=== PATIENT | female | born 1990 | race Caucasian/White ===

== ENCOUNTER 2017-05-04 11:21 | Emergency (ER) | payer MEDICAID, OTHER ==
[2017-05-04] MEDS ORDERED: Ibuprofen TAB* 200 MG PO ONE (12:04)
--- NOTE | 2017-05-04 12:43 | UC ---
lo Moore Timothy, scribed for Starla Lieberman MD on 05/04/17 at 1200 . Lower Extremity/Ankle HPI - HPI Summary HPI Summary: Dangelo Figueredo is a 26 yo female presenting to [facility] with 8/10 right knee pain since yesterday, and right-sided back pain for the past hour. She states she noticed her pain when she was carrying one of her children. Her pain increases with weight-bearing, but it is able to bear weight. She denies any trauma to her back or right knee. No fall. No paresthesia. No weakness. Pt applied ice - helped for awhile, but then pain returned. Pt denies paresthesia, weakness. No analgesi taken. No h/o knee problems. pt also reports right lower back pain today. Pt has been walking with a limp second to knee pain. No sob, no cp. Her MHx includes shanae's disease, asthma. Her LNMP started 04/29/17. Pt medication list was reviewed this visit. - History of Current Complaint Chief Complaint: UCBackPain Stated Complaint: PAIN ON SIDE KNEE PAIN Time Seen by Provider: 05/04/17 11:52 Hx Obtained From: Patient Hx Last Menstrual Period: 05/04/17 Onset/Duration: Sudden Onset, Lasting Hours, Still Present Severity Initially: Moderate Severity Currently: Moderate Pain Intensity: 8 Pain Scale Used: 0-10 Numeric Aggravating Factor(s): Standing, Ambulation Alleviating Factor(s): Rest Able to Bear Weight: Yes - Allergies/Home Medications Allergies/Adverse Reactions: Allergies Allergy/AdvReac Type Severity Reaction Status Date / Time Sulfa Drugs Allergy Intermediate Hives Verified 05/04/17 11:32 PMH/Surg Hx/FS Hx/Imm Hx Previously Healthy: Yes Endocrine History: Thyroid Disease - shanae's - not treated Respiratory History: Asthma - Surgical History Surgical History: Yes Surgery Procedure, Year, and Place: C section - Family History Known Family History: Positive: Hypertension, Diabetes, Other - CA, thyroid issues - Social History Occupation: Employed Full-time - [employer] station Lives: With Family Alcohol Use: None Substance Use Type: None Smoking Status (MU): Current Every Day Smoker Have You Smoked in the Last Year: No Household Exposure Type: Cigarettes - Immunization History Most Recent Influenza Vaccination: 10/12/13 Most Recent Tetanus Shot: unsure Most Recent Pneumonia Vaccination: never Review of Systems Constitutional: Negative Skin: Negative Eyes: Negative ENT: Negative Respiratory: Negative Cardiovascular: Negative Gastrointestinal: Negative Genitourinary: Negative Motor: Negative Neurovascular: Negative Musculoskeletal: Other: - right knee pain, back pain - right lower Neurological: Negative Psychological: Negative All Other Systems Reviewed And Are Negative: Yes Physical Exam Triage Information Reviewed: Yes Appearance: Well-Appearing, No Pain Distress, Well-Nourished Vital Signs: Initial Vital Signs Temp 98.2 F 05/04/17 11:28 Pulse 74 05/04/17 11:28 Resp 16 05/04/17 11:28 BP 108/65 05/04/17 11:28 Pulse Ox 100 05/04/17 11:28 Eye Exam: Normal ENT: Positive: Hearing grossly normal Neck exam: Normal Neck: Positive: Supple, Nontender, No Lymphadenopathy Respiratory Exam: Normal Respiratory: Positive: Chest non-tender, Lungs clear, Normal breath sounds, No respiratory distress Cardiovascular Exam: Normal Cardiovascular: Positive: RRR, No Murmur, Pulses Normal, Other: - 2+ PD, PT CBT < 2 sec Abdominal Exam: Normal Abdomen Description: Positive: Nontender, No Organomegaly, Soft Bowel Sounds: Positive: Present Musculoskeletal: Positive: Other: - No spinous process pain c/t/l/s mild right paraspinal pain lower thoracic, upper lumbar + SLE + flex/ext knee with pain with full extension, full flexion + TTP lateral aspect of right patella Neg anter/post drawer Little pain with lateral joint strain Neurological: Positive: Other: - 2+ patella, 2+ achilles + gross sensation throughout Psychological Exam: Normal Psychological: Positive: Normal Response To Family Skin Exam: Normal Diagnostics - Radiology R Knee XR Xray Interpretation: No Acute Changes - IMPRESSION: Negative radiographic exam of the RIGHT knee. Radiology Interpretation Completed By: Radiologist Re-Evaluation - Re-Evaluation First Eval Re-Evaluation Time: 13:07 Change: Unchanged Comment: Reviewed imaging studies with Pt. Pt was sitting in a chair with her knees flexed in no pain distress. She is agreeable to current course of Tx. Lower Extremity Course/Dx - Course Course Of Treatment: Dangelo Figueredo is a 26 yo female presenting to [facility] with 8/ 10 right knee pain since yesterday, and right-sided back pain for the past hour. She denies any known trauma. Pt without significant edema - pain lateral aspect right knee. Will give analgesia, ice, imaging. Course of Tx was explained to Pt, and her questions were answered to her satisfaction. In the ED course she received ibuprofen for pain management. Her R knee XR suggests a negative exam. After clinical examination and review of her imaging study, she will be discharged home with appropriate instructions. - Differential Dx/Diagnosis Provider Diagnoses: right knee strain. back pain Discharge - Discharge Plan Condition: Stable Disposition: HOME Patient Education Materials: Knee Sprain (ED) Forms: *Work Release Referrals: Jose Manuel Lynn MD [Primary Care Provider] - 2 Days Additional Instructions: - - Alternate ibuprofen (Advil, Motrin) 600mg and Tylenol every 3 hours for pain or fever. Take with food. Do NOT take for more than 4-5 days. - wear tiffanie wrap for support - apply ice (wrapped in a towel) 20 minutes at a time, 2- 3 times a day for pain and swelling - wear crutches until you can walk normally without a limp - contact your doctor to schedule a follow-up appointment. Contact your doctor or return with questions or concerns Please follow up with your primary care physician regarding your visit to urgent care today. Return to urgent care or the emergency department with any new or recurring symptoms. The documentation as recorded by the lo barrera Timothy accurately reflects the service I personally performed and the decisions made by , Starla Lieberman MD.
--- NOTE | 2017-05-04 13:03 | RAD ---
Indication: Lateral RIGHT knee pain and stiffness following ambulation. Limitation in flexion. Comparison: None. Technique: RIGHT knee: AP, tunnel, lateral, sunrise views. Report: Normal alignment. Negative for effusion or fracture. No arthropathic change evident. Unremarkable soft tissue contours. IMPRESSION: Negative radiographic exam of the RIGHT knee.
[2017-05-04 13:27] VITALS: BP 102/65
== END 2017-05-04 13:35 | disposition home or self-care (01) ==
LOC: UCEAST 11:21
DX: S83.91XA Sprain of unspecified site of right knee, initial encounter (principal); X58.XXXA Exposure to other specified factors, initial encounter
CPT/HCPCS: 99203; A9270-GY; G0463

== ENCOUNTER 2017-06-29 10:52 | Emergency (ER) | payer OTHER ==
[2017-06-29] MEDS ORDERED: Ketorolac INJ* 60 MG/2 ML VIAL IM ONE (11:54)
--- NOTE | 2017-06-29 12:29 | UC ---
Throat Pain/Nasal [place] HPI - HPI Summary HPI Summary: ONSET LAST NIGHT OF ST AND PAIN WITH SWALLOWING. NO FEVER, COUGH OR CONGESTION. ALSO HAS HAD 1 MONTH OF RIGHT SHOULDER PAIN AND DECREASED ROM. IS SCHEDULED FOR A STEROID INJECTION WITH HER PCP DR. PANDEY TOMORROW. THINKS SHE PULLED A MUSCLE PICKING UP HER TODDLER. IS CONCERNED DUE TO SEVERITY OF PAIN. STATES IT SHOOTS DOWN HER BACK AND MAKES HER ARM GO NUMB AT TIMES. - History of Current Complaint Chief Complaint: UCUpperExtremity Stated Complaint: SHOULDER PAIN SORE THROAT Time Seen by Provider: 06/29/17 11:38 Hx Obtained From: Patient, Family/Brineyard Supervisor - MOM Hx Last Menstrual Period: 06/20/17 Onset/Duration: Sudden Onset, Lasting Hours, Still Present Severity: Moderate Pain Intensity: 7 Pain Scale Used: 0-10 Numeric Cough: None Associated Signs & Symptoms: Positive: Negative - Allergies/Home Medications Allergies/Adverse Reactions: Allergies Allergy/AdvReac Type Severity Reaction Status Date / Time Sulfa Drugs Allergy Intermediate Hives Verified 06/29/17 11:00 Home Medications: Home Medications Tramadol HCl [Ultram] 2 tab PO Q6HR PRN 06/29/17 [History Confirmed 06/29/17] PMH/Surg Hx/FS Hx/Imm Hx Endocrine History: Thyroid Disease - Surgical History Surgical History: Yes Surgery Procedure, Year, and Place: C section - Family History Known Family History: Positive: Hypertension, Diabetes, Other - CA, thyroid issues - Social History Alcohol Use: None Substance Use Type: None Smoking Status (MU): Current Every Day Smoker Amount Used/How Often: 1pack q 3 days. Have You Smoked in the Last Year: No Household Exposure Type: Cigarettes - Immunization History Most Recent Influenza Vaccination: 10/12/13 Most Recent Tetanus Shot: unsure Most Recent Pneumonia Vaccination: never Review of Systems Constitutional: Negative ENT: Sore Throat Respiratory: Negative Cardiovascular: Negative Gastrointestinal: Negative Musculoskeletal: Arthralgia, Decreased ROM, Myalgia All Other Systems Reviewed And Are Negative: Yes Physical Exam Triage Information Reviewed: Yes Appearance: Well-Appearing, Well-Nourished, Pain Distress - MILD Vital Signs: Initial Vital Signs Temp 98.2 F 06/29/17 10:54 Pulse 105 06/29/17 10:54 Resp 16 06/29/17 10:54 BP 120/76 06/29/17 10:54 Pulse Ox 100 06/29/17 10:54 Vital Signs Reviewed: Yes Eyes: Positive: Conjunctiva Clear ENT: Positive: Hearing grossly normal, Pharynx normal, TMs normal. Negative: Tonsillar swelling, Tonsillar exudate Neck: Positive: Supple, Tenderness @ - SPFL CERVICAL LAD, Enlarged Nodes @ - SPFL CERVICAL LAD Respiratory Exam: Normal Cardiovascular: Positive: Tachycardia Abdomen Description: Positive: Soft Musculoskeletal: Positive: No Edema, ROM Limited @ - RIGHT SHOULDER, Other: - TTP DIFFUSELY OVER RIGHT SHOULDER Neurological: Positive: Alert Psychological: Positive: Age Appropriate Behavior Skin: Negative: rashes Diagnostics - Laboratory Diagnostic Studies Completed/Ordered: RAPID STREP NEGATIVE - Radiology right shoulder xrays Xray Interpretation: No Acute Changes Radiology Interpretation Completed By: Radiologist Re-Evaluation - Re-Evaluation First Eval Re-Evaluation Time: 13:00 Change: Improved Throat Pain/Nasal Course/Dx - Differential Dx/Diagnosis Provider Diagnoses: 1. ACUTE PHARYNGITIS. 2. RIGHT SHOULDER PAIN Discharge - Discharge Plan Condition: Stable Disposition: HOME Patient Education Materials: Pharyngitis (ED), Shoulder Pain (ED) Referrals: Jose Manuel Pandey MD [Primary Care Provider] - (KEEP YOUR FOLLOW-UP WITH DR. PANDEY TOMORROW) Jose Manuel Cedeno MD [Medical Doctor] - 1 Week Additional Instructions: SHOULDER XRAY UNREMARKABLE TODAY. RAPID STREP NEGATIVE. KEEP YOUR PCP APPT TOMORROW. CONSIDER FOLLOW-UP WITH [facility] IF YOUR SHOULDER PAIN IS PERSISTENT.
--- NOTE | 2017-06-29 12:44 | RAD ---
Indication: Right shoulder pain. 3 views of the right shoulder demonstrates no fracture. No other bone or joint abnormality is identified. IMPRESSION: Unremarkable right shoulder.
[2017-06-29 13:25] VITALS: BP 102/72
== END 2017-06-29 13:21 | disposition home or self-care (01) ==
LOC: UCEAST 10:52
DX: J02.9 Acute pharyngitis, unspecified (principal); M25.511 Pain in right shoulder; E07.9 Disorder of thyroid, unspecified; Z88.2 Allergy status to sulfonamides; F17.210 Nicotine dependence, cigarettes, uncomplicated
CPT/HCPCS: 87651; 96372; 99212; G0463; J1885

== ENCOUNTER 2017-07-31 11:14 | Emergency (ER) | payer OTHER ==
[2017-07-31 11:23] VITALS: BP 86/54
--- NOTE | 2017-07-31 11:49 | UC ---
Abdominal Pain Female HPI - HPI Summary HPI Summary: TWO DAYS OF RLQ AND LLQ ABDOMINAL PAIN. HISTORY OF OVARIAN CYSTS. NO FEVER. NO PAIN WITH URINATION. NAUSEA AND LOOSE STOOLS. PAIN WITH POSITION AND TOUCH. - History of Current Complaint Chief Complaint: UCGI Stated Complaint: ABDOMINAL PAIN Time Seen by Provider: 07/31/17 11:21 Hx Obtained From: Patient Hx Last Menstrual Period: 07/14/17 Onset/Duration: Gradual Onset, Lasting Days, Still Present Timing: Intermittent Episodes Lasting: Severity Initially: Moderate Severity Currently: Moderate Location: Discrete At: RLQ, Discrete At: LLQ, Suprapubic Radiates: No Radiates to: LLQ, RLQ Character: Colicy, Cramping, Sharp Aggravating Factor(s): Movement Alleviating Factor(s): Position, Spontaneous Resolution Associated Signs and Symptoms: Positive: Nausea, Diarrhea. Negative: Fever, Cough, Chest Pain, Dizzy, Constipation, Blood in Stool, Urinary Symptoms, Decreased Appetite, Vaginal Bleeding - Risk Factors Ectopic Risk Factor: Negative Ovarian Torsion Risk Factor: Negative Allergies/Adverse Reactions: Allergies Allergy/AdvReac Type Severity Reaction Status Date / Time Sulfa Drugs Allergy Intermediate Hives Verified 07/31/17 11:23 Home Medications: Home Medications NK [No Home Medications Reported] 07/31/17 [History Confirmed 07/31/17] PMH/Surg Hx/FS Hx/Imm Hx Previously Healthy: Yes - Surgical History Surgical History: Yes Surgery Procedure, Year, and Place: C section - Family History Known Family History: Positive: Hypertension, Diabetes, Other - CA, thyroid issues - Social History Occupation: Employed Full-time Lives: With Family Alcohol Use: Rare Substance Use Type: None Smoking Status (MU): Current Every Day Smoker Amount Used/How Often: 1pack q 3 days. Have You Smoked in the Last Year: No Household Exposure Type: Cigarettes - Immunization History Most Recent Influenza Vaccination: 10/12/13 Most Recent Tetanus Shot: unsure Most Recent Pneumonia Vaccination: never Review of Systems Constitutional: Negative Skin: Negative Eyes: Negative ENT: Negative Respiratory: Negative Cardiovascular: Negative Gastrointestinal: Abdominal Pain, Diarrhea, Nausea Genitourinary: Negative Motor: Negative Neurovascular: Negative Musculoskeletal: Negative Neurological: Negative Psychological: Negative All Other Systems Reviewed And Are Negative: Yes Physical Exam Triage Information Reviewed: Yes Appearance: Well-Appearing, Well-Nourished, Pain Distress, Thin Vital Signs: Initial Vital Signs Temp 97.9 F 07/31/17 11:17 Pulse 90 07/31/17 11:17 Resp 18 07/31/17 11:17 BP 86/54 07/31/17 11:17 Pulse Ox 100 07/31/17 11:17 Vital Signs Reviewed: Yes Eye Exam: Normal ENT Exam: Normal ENT: Positive: Normal ENT inspection, Hearing grossly normal, TMs normal Dental Exam: Normal Neck exam: Normal Neck: Positive: Supple, Nontender, No Lymphadenopathy Respiratory Exam: Normal Respiratory: Positive: Chest non-tender, Lungs clear, Normal breath sounds, No respiratory distress, No accessory muscle use Cardiovascular Exam: Normal Cardiovascular: Positive: RRR, No Murmur, Pulses Normal, Brisk Capillary Refill Abdomen Description: Positive: No Organomegaly, Soft. Negative: Nontender - TENDER RLQ, LLQ, SUPRAPUBIC Musculoskeletal Exam: Normal Musculoskeletal: Positive: Strength Intact, ROM Intact, No Edema Abd Pain Female Course/Dx - Course Course Of Treatment: WITH HISTORY OF OVARIAN CYST AND PAIN OUT OF PROPORTION TO UTI, WITH NO URINARY SYMPTOMS, PATIENT WAS ADVISED TO SEEK EVALUATION AT ED. [facility] REFUSED AMBULANCE BUT AGREED TO SEEK CARE AT ED, WILL GO BY PRIVATE CARE , FRIEND DRIVING. 2+ LEUKOCYTES, NO HEMATURIA, NEGATIVE URINE - Differential Dx/Diagnosis Differential Diagnosis: Appendicitis, Bowel Obstruction, Diverticulitis, Hepatitis, Ovarian Cyst, Pelvic Inflammatory Disease, , Urinary Tract Infection, Other - PID, STD Provider Diagnoses: URINARY TRACT INFECTION; ABDOMINAL PAIN - Physician Notification/Consults Discussed Care of Patient With: Poncho Denise Time Discussed With Above Provider: 11:50 Instructed by Provider To: MD Will See In ED Discharge - Discharge Plan Condition: Stable Disposition: HOME Patient Education Materials: Ovarian Cyst (ED), Urinary Tract Infection in Women (ED), Abdominal Pain (ED) Referrals: Jose Manuel Lynn MD [Primary Care Provider] - Additional Instructions: ALTHOUGH YOU HAVE REFUSED AMBULANCE, YOU HAVE AGREED TO SEEK IMMEDIATE EVALUATION AT THE EMERGENCY DEPARTMENT, ESPECIALLY REGARDING YOUR ABDOMINAL PAIN, WITH YOUR HISTORY OF OVARIAN CYSTS. DRIVE CAUTIOUSLY AND SAFELY TO THE EMERGENCY DEPARTMENT.
== END 2017-07-31 11:46 | disposition home or self-care (01) ==
LOC: UCEAST 11:14
DX: N39.0 Urinary tract infection, site not specified (principal); R10.30 Lower abdominal pain, unspecified; Z32.02 Encounter for pregnancy test, result negative
CPT/HCPCS: 81003; 84702; 87086; 99211; G0463

== ENCOUNTER 2017-07-31 12:20 | Emergency (ER) | payer OTHER ==
[2017-07-31] MEDS ORDERED: NS 0.9% 1000 ML* 1,000 ML IV ONE (12:39)
[2017-07-31] MEDS ORDERED: Morphine INJ* 4 MG/ML 1 ML SYRINGE IV ONE (12:41)
[2017-07-31] MEDS ORDERED: Ondansetron INJ* 2 MG/ML VIAL IV ONE (12:41)
[2017-07-31 13:00] LABS: Hematocrit 36 % (35-47); Hemoglobin 12.2 g/dl (12.0-16.0); Mean Corpuscular HGB Conc 34 g/dl (31-36); Mean Corpuscular Hemoglobin 32 pg (27-31); Mean Corpuscular Volume 96 fL (80-97); Mean Platelet Volume 9 um3 (7.4-10.4); Red Blood Count 3.78 10^6/ul (4.0-5.4); Red Cell Distribution Width 16 % (10.5-15); White Blood Count 5.7 10^3/ul (3.5-10.8)
[2017-07-31 13:23] LABS: ALT 12 U/L (7-52); AST 17 U/L (13-39); Alkaline Phosphatase 48 U/L (34-104); Anion Gap 1 mmol/L (2-11); BUN/Creatinine Ratio 11.1 (8-20); Blood Urea Nitrogen 7 mg/dL (6-24); CO2 Carbon Dioxide 29 mmol/L (22-32); Calcium 9.1 mg/dL (8.6-10.3); Chloride 105 mmol/L (101-111); EGFR African American 149.3 (>60); EGFR Non-African American 116.1 (>60); Globulin 2.5 g/dL (2-4); Glucose 79 mg/dL (70-100); Lipase 35 U/L (11.0-82.0); Potassium 3.6 mmol/L (3.5-5.0); Sodium 135 mmol/L (133-145); Total Protein 6.5 g/dL (6.4-8.9)
[2017-07-31] MEDS ORDERED: Iohexol 300* (CONTRAST) 10 ML SDV IV ONE (14:36)
--- NOTE | 2017-07-31 15:16 | RAD ---
INDICATION: Lower abdominal pain evaluate for appendicitis. COMPARISON: There are no prior studies available for comparison. TECHNIQUE: A CT scan of the abdomen and pelvis was performed with intravenous and oral contrast following intravenous injection of 59 ml of Omnipaque 300 nonionic contrast. Contiguous axial sections were obtained from the lung bases through the symphysis pubis. Images were reconstructed in the coronal and sagittal planes. FINDINGS: The lung bases are clear. No pleural effusion is present. The liver and spleen are within normal limits in size without significant focal abnormality. No calcified gallstones are seen. The pancreas appears to be within normal limits in size. The kidneys and adrenal glands are normal in size. No hydronephrosis is seen. No significant focal renal abnormality is seen. The aorta is normal in caliber and demonstrates homogeneous contrast opacification. No significant enlarged retroperitoneal lymph nodes are seen. The stomach, small and large bowel appear nondistended. The appendix is within normal limits. There is no evidence for diverticulitis or colitis. The uterus is anteverted and upper limits of normal in size. There is a small amount of free intraperitoneal fluid in the cul-de-sac. No free intraperitoneal air is present. There is a yoen-yd-ggftinre dorsal lumbar scoliosis. No significant focal osseous abnormality is seen. IMPRESSION: SMALL AMOUNT OF FREE INTRAPERITONEAL FLUID IN THE PELVIS IN THE CUL-DE-SAC, OTHERWISE UNREMARKABLE STUDY.
[2017-07-31 16:14] LABS: Urine Bacteria Absent (Absent); Urine Bilirubin Negative (Negative); Urine Glucose Negative (Negative); Urine Nitrite Negative (Negative)
--- NOTE | 2017-07-31 16:27 | RAD ---
INDICATION: Right lower quadrant pain, ovarian cyst. COMPARISON: Comparison is made with a prior pelvic ultrasound from September 07, [address] of the abdomen and pelvis from July 31, 2017. TECHNIQUE: Multiple real-time transvaginal images of the pelvis were obtained. FINDINGS: The uterus is normal in size, shape and echogenicity. The uterus measured 9.8 x 5.0 x 6.4 cm. The endometrial echo measured 1.0 cm in thickness. The right ovary measured 3.6 x 2.1 x 4.1 cm. The left ovary measured 3.1 x 2.6 x 1.8 cm. There is vascular flow within both ovaries. There is a small amount of free intraperitoneal fluid in the cul-de-sac. IMPRESSION: SMALL AMOUNT OF FREE INTRAPERITONEAL FLUID IN THE CUL-DE-SAC OTHERWISE UNREMARKABLE STUDY.
[2017-07-31 17:13] VITALS: BP 109/63
--- NOTE | 2017-07-31 17:17 | ED ---
Alannah Moore SooYoung, scribed for Dheeraj Vasquez on 07/31/17 at 1238 . Abdominal Pain/Female - HPI Summary HPI Summary: A 26 y/o F referred from [facility] presents to ED with c/o RLQ abd pain onset this AM. Pain rated as 8 out of 10. Associated sx: nausea. Denies v/d, fever, hematuria, vaginal bleeding. Prev PMHx: ovarian cysts. Only abd surgery was a C- section three years ago. Smoker. - History of Current Complaint Chief Complaint: EDAbdPain Stated Complaint: ABD PAIN-SENT FROM [facility] Time Seen by Provider: 07/31/17 12:33 Hx Obtained From: Patient Hx Last Menstrual Period: 07/14/17 Onset/Duration: Gradual Onset, Lasting Hours, Still Present Timing: Constant Severity Initially: Moderate Severity Currently: Severe Pain Intensity: 8 Pain Scale Used: 0-10 Numeric Location: Discrete At: RLQ Associated Signs and Symptoms: Positive: Nausea. Negative: Fever, Urinary Symptoms, Vaginal Bleeding, Vomiting, Diarrhea Allergies/Adverse Reactions: Allergies Allergy/AdvReac Type Severity Reaction Status Date / Time Sulfa Drugs Allergy Intermediate Hives Verified 07/31/17 11:23 PMH/Surg Hx/FS Hx/Imm Hx Previously Healthy: No Endocrine/Hematology History: Reports: Hx Thyroid Disease - Pt unsure if hypo- or hyper Denies: Hx Diabetes Cardiovascular History: Denies: Hx Hypertension Respiratory History: Reports: Hx Asthma Denies: Hx Chronic Obstructive Pulmonary Disease (COPD) GI History: Denies: Hx Ulcer - Surgical History Surgery Procedure, Year, and Place: C section Infectious Disease History: Denies: Hx Clostridium Difficile, Hx Hepatitis, Hx Human Immunodeficiency Virus (HIV), Hx of Known/Suspected MRSA, Hx Shingles, Hx Tuberculosis, Hx Known/ Suspected VRE, Hx Known/Suspected VRSA, History Other Infectious Disease, Traveled Outside the [place] in Last 30 Days - Family History Known Family History: Positive: Hypertension, Diabetes, Other - CA, thyroid issues - Social History Occupation: Employed Full-time Lives: Alone Alcohol Use: Rare Hx Substance Use: No Substance Use Type: Reports: None Hx Tobacco Use: Yes Smoking Status (MU): Current Every Day Smoker Amount Used/How Often: 1pack q 3 days. Have You Smoked in the Last Year: No Review of Systems Negative: Fever Positive: Abdominal Pain - RLQ, Nausea. Negative: Vomiting, Diarrhea Negative: discharge - neg: vaginal bleeding, hematuria All Other Systems Reviewed And Are Negative: Yes Physical Exam Triage Information Reviewed: Yes Vital Signs On Initial Exam: Initial Vitals Temp Pulse Resp BP Pulse Ox 97.7 F 81 20 107/58 99 07/31/17 12:24 07/31/17 12:24 07/31/17 12:24 07/31/17 12:24 07/31/17 12:24 Vital Signs Reviewed: Yes Appearance: Positive: Well-Appearing, No Pain Distress Skin: Positive: Warm, Skin Color Reflects Adequate Perfusion, Dry Head/Face: Positive: Normal Head/Face Inspection Eyes: Positive: EOMI, RADHA ENT: Positive: Normal ENT inspection Neck: Positive: Supple, Nontender Respiratory/Lung Sounds: Positive: Clear to Auscultation, Breath Sounds Present Cardiovascular: Positive: RRR, Pulses are Symmetrical in both Upper and Lower Extremities Abdomen Description: Positive: Soft, Other: - RLQ tenderness Bowel Sounds: Positive: Present Musculoskeletal: Positive: Normal, Strength/ROM Intact Neurological: Positive: Normal, Sensory/Motor Intact, Alert, Oriented to Person Place, Time Diagnostics - Vital Signs Vital Signs Temp Pulse Resp BP Pulse Ox 07/31/17 12:24 97.7 F 81 20 107/58 99 - Laboratory Result Diagrams: 07/31/17 12:45 07/31/17 12:45 Lab Statement: Any lab studies that have been ordered have been reviewed, and results considered in the medical decision making process. - CT ABD/PEL CT CT Interpretation: No Acute Changes - IMPRESSION: SMALL AMOUNT OF FREE INTRAPERITONEAL FLUID IN THE PELVIS IN THE CUL-DE-SAC, OTHERWISE UNREMARKABLE STUDY. ED physician has reviewed this radiology report and agrees. CT Interpretation Completed By: Radiologist Re-Evaluation - Re-Evaluation 1 Re-Evaluation Time: 16:55 Change: Improved Comment: Discussing results with pt. Pt feeling better. Abdominal Pain Fem Course/Dx - Course Course Of Treatment: A 26 y/o F referred from [facility] presents to ED with c/o RLQ abd pain onset this AM. Associated sx: nausea. Denies v/d, fever, hematuria, vaginal bleeding. Prev PMHx: ovarian cysts. PSHx: . Pt given fluids, morphine and zofran in ED. Bloodwork/UA obtained. Abd/pel CT shows "SMALL AMOUNT OF FREE INTRAPERITONEAL FLUID IN THE PELVIS IN THE CUL-DE-SAC, OTHERWISE UNREMARKABLE STUDY.". Will D/C home with Naproxen to f/u with PCP. - Diagnoses Provider Diagnoses: Nonspecific abdominal pain Discharge - Discharge Plan Condition: Stable Disposition: HOME Prescriptions: Naproxen [Naproxen 500 mg] 500 mg PO Q8H PRN #20 tab MDD 4 PRN Reason: Pain Patient Education Materials: Acute Abdominal Pain (ED), Naproxen (By mouth) Referrals: Jose Manuel Lynn MD [Primary Care Provider] - Additional Instructions: Follow up with your primary care provider in 3 days. Please return to the ED if you experience new or worsening symptoms. The documentation as recorded by the Alannah barrera SooYoung accurately reflects the service I personally performed and the decisions made by , Dheeraj Vasquez.
== END 2017-07-31 17:13 | disposition home or self-care (01) ==
LOC: ED 12:20
DX: R10.31 Right lower quadrant pain (principal); F17.210 Nicotine dependence, cigarettes, uncomplicated; R11.0 Nausea
CPT/HCPCS: 36415; 74177; 76856; 80053; 81003; 81015; 83690; 84702; 85025; 85610; 85730; 86703; 96374; 96375; 99283; J2270; J2405; Q9967

== ENCOUNTER 2017-10-22 15:17 | Emergency (ER) | payer OTHER ==
[2017-10-22] MEDS ORDERED: NS 0.9% 1000 ML* 1,000 ML BOLUS ONE (16:06)
[2017-10-22] MEDS ORDERED: Ondansetron INJ* 2 MG/ML VIAL IV ONE (16:07)
--- NOTE | 2017-10-22 16:20 | UC ---
Abdominal Pain Female HPI - HPI Summary HPI Summary: 27 yo female with the onset last PM of n/v x 6 or more no urine x>14 hours no diarrhea initially had crampy abd pain no pain now nausea legs hurt see mickie week - History of Current Complaint Chief Complaint: UCGI Stated Complaint: VOMITING,LEGS PAIN Time Seen by Provider: 10/22/17 16:01 Hx Obtained From: Patient Hx Last Menstrual Period: one month ago Onset/Duration: Sudden Onset, Lasting Hours Timing: Constant Severity Initially: Moderate Severity Currently: Mild Pain Intensity: 6 - leg pain Pain Scale Used: 0-10 Numeric Location: Diffuse Radiates: No Character: Cramping Aggravating Factor(s): Nothing Alleviating Factor(s): Nothing Associated Signs and Symptoms: Positive: Nausea, Vomiting Allergies/Adverse Reactions: Allergies Allergy/AdvReac Type Severity Reaction Status Date / Time Sulfa Drugs Allergy Intermediate Hives Verified 10/22/17 15:25 PMH/Surg Hx/FS Hx/Imm Hx Previously Healthy: Yes - Surgical History Surgical History: Yes Surgery Procedure, Year, and Place: C section - Family History Known Family History: Positive: Hypertension, Diabetes, Other - CA, thyroid issues - Social History Alcohol Use: Rare Substance Use Type: None Smoking Status (MU): Former Smoker Amount Used/How Often: 1pack q 3 days. Have You Smoked in the Last Year: No Household Exposure Type: Cigarettes - Immunization History Most Recent Influenza Vaccination: 10/12/13 Most Recent Tetanus Shot: unsure Most Recent Pneumonia Vaccination: never Review of Systems Constitutional: Negative Skin: Negative Eyes: Negative ENT: Negative Respiratory: Negative Cardiovascular: Negative Gastrointestinal: Vomiting, Nausea Genitourinary: Negative Motor: Negative Neurovascular: Negative Musculoskeletal: Myalgia Neurological: Negative Psychological: Negative Is Patient Immunocompromised?: No All Other Systems Reviewed And Are Negative: Yes Physical Exam Triage Information Reviewed: Yes Appearance: Well-Appearing, No Pain Distress, Well-Nourished Vital Signs: Initial Vital Signs Temp 98.0 F 10/22/17 15:22 Pulse 105 10/22/17 15:22 Resp 12 10/22/17 15:22 BP 81/53 10/22/17 15:22 Pulse Ox 99 10/22/17 15:22 Vital Signs Reviewed: Yes Eyes: Positive: Conjunctiva Clear ENT: Positive: Hearing grossly normal. Negative: Nasal congestion, Nasal drainage, Trismus, Hoarse voice, Sinus tenderness Neck: Positive: Supple, Nontender, No Lymphadenopathy Respiratory: Positive: Lungs clear, Normal breath sounds, No respiratory distress, No accessory muscle use Cardiovascular: Positive: RRR, No Murmur, Tachycardia Abdomen Description: Positive: Nontender, No Organomegaly, Soft. Negative: CVA Tenderness (R), CVA Tenderness (L) Bowel Sounds: Positive: Present Musculoskeletal: Positive: ROM Intact, No Edema Neurological: Positive: Alert Psychological Exam: Normal Skin Exam: Normal Re-Evaluation - Re-Evaluation First Eval Re-Evaluation Time: 17:46 Change: Improved Comment: much better. no abd pain. no leg pain. desires to go home Abd Pain Female Course/Dx - Differential Dx/Diagnosis Provider Diagnoses: acute nausea/vomitng. dehydrations. gastritis Discharge - Discharge Plan Condition: Stable Disposition: HOME Prescriptions: Ondansetron TAB* [Zofran Tab*] 4 mg PO Q6H PRN #6 tab PRN Reason: Nausea Patient Education Materials: Acute Nausea and Vomiting (ED) Forms: *Gen. Provider Communication, *Work Release Referrals: Jose Manuel Lynn MD [Primary Care Provider] - 3 Days Additional Instructions: recheck tomorrow if not normal or near normal
[2017-10-22 17:47] VITALS: BP 91/66
== END 2017-10-22 17:56 | disposition home or self-care (01) ==
LOC: UCEAST 15:17
DX: Z87.891 Personal history of nicotine dependence (principal); Z77.22 Contact with and (suspected) exposure to environmental tobacco smoke (acute) (chronic); R11.2 Nausea with vomiting, unspecified; E86.0 Dehydration; K29.70 Gastritis, unspecified, without bleeding
CPT/HCPCS: 81003; 81025; 87086; 96360; 96375; 99211; G0463; J2405

== ENCOUNTER 2018-01-13 16:43 | Emergency (ER) | payer OTHER ==
[2018-01-13 17:55] VITALS: BP 96/80
[2018-01-13] MEDS ORDERED: Ibuprofen TAB* 600 MG PO ONE (20:17)
--- NOTE | 2018-01-13 20:17 | UC ---
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--- - History of Current Complaint Chief Complaint: UCLowerExtremity Stated Complaint: KNEE INJURY Time Seen by Provider: 01/13/18 20:10 Hx Obtained From: Patient Hx Last Menstrual Period: 01/03/18 ?: No Onset/Duration: Sudden Onset, Lasting Hours - 8 Severity Initially: Moderate Severity Currently: Moderate Pain Intensity: 9 Pain Scale Used: 0-10 Numeric Character: Aching, Throbbing Aggravating Factor(s): Movement, Weight Bearing Alleviating Factor(s): Nothing Associated Signs And Symptoms: Positive: Negative Able to Bear Weight: No - Allergies/Home Medications Allergies/Adverse Reactions: Allergies Allergy/AdvReac Type Severity Reaction Status Date / Time MS Sulfa Drugs [Sulfa Drugs] Allergy Intermediate Hives Verified 01/13/18 17:55 PMH/Surg Hx/FS Hx/Imm Hx Previously Healthy: Yes - Surgical History Surgical History: Yes Surgery Procedure, Year, and Place: C section - Family History Known Family History: Positive: Hypertension, Diabetes, Other - CA, thyroid issues - Social History Occupation: Employed Full-time Lives: With Family Alcohol Use: Rare Substance Use Type: None Smoking Status (MU): Light Every Day Tobacco Smoker Amount Used/How Often: 1pack q 3 days. Have You Smoked in the Last Year: No Household Exposure Type: Cigarettes Cessation Counseling: Counseled 3+Min - 10 Min - Immunization History Most Recent Influenza Vaccination: 10/12/13 Most Recent Tetanus Shot: unsure Most Recent Pneumonia Vaccination: never Review of Systems Constitutional: Negative Skin: Negative Eyes: Negative ENT: Negative Respiratory: Negative Cardiovascular: Negative Gastrointestinal: Negative Genitourinary: Negative Motor: Negative Neurovascular: Negative Musculoskeletal: Arthralgia - right medial knee pain Neurological: Negative Psychological: Negative Is Patient Immunocompromised?: No All Other Systems Reviewed And Are Negative: Yes Physical Exam Triage Information Reviewed: Yes Appearance: Well-Appearing, Well-Nourished, Pain Distress - mild Vital Signs: Initial Vital Signs Temp 98.5 F 01/13/18 17:47 Pulse 101 01/13/18 17:47 Resp 16 01/13/18 17:47 BP 96/80 01/13/18 17:47 Pulse Ox 99 01/13/18 17:47 Vital Signs Reviewed: Yes Eye Exam: Normal Eyes: Positive: Conjunctiva Clear ENT Exam: Normal ENT: Positive: Normal ENT inspection, Hearing grossly normal. Negative: Nasal congestion, Nasal drainage, Tonsillar exudate, Trismus, Muffled voice, Hoarse voice Dental Exam: Normal Neck exam: Normal Neck: Positive: Supple, Nontender Respiratory Exam: Normal Respiratory: Positive: Chest non-tender, No respiratory distress, No accessory muscle use Cardiovascular Exam: Normal Cardiovascular: Positive: RRR, Pulses Normal, Brisk Capillary Refill Musculoskeletal Exam: Normal Musculoskeletal: Positive: Strength Intact, ROM Intact, No Edema Neurological Exam: Normal Neurological: Positive: Alert, Muscle Tone Normal Psychological Exam: Normal Skin Exam: Normal Diagnostics - Radiology No standard instances Xray Interpretation: No Acute Changes Radiology Interpretation Completed By: Radiologist Knee Pain Course/Dx - Course Course Of Treatment: rice, tiffanie, knee immoblizer, ibuprofen follow with ortho - Differential Dx/Diagnosis Provider Diagnoses: nicotine dependent, right knee sprain Discharge - Discharge Plan Condition: Stable Disposition: HOME Prescriptions: Ibuprofen TAB* [Motrin TAB* 600 MG] 600 mg PO Q6H PRN #40 tab PRN Reason: pain Patient Education Materials: How to Stop Smoking (ED), Knee Sprain (ED), Crutch Instructions (ED), R.I.C.E. Treatment (ED) Forms: *Work Release Referrals: Palomo Spencer MD [Medical Doctor] - 4 Days
--- NOTE | 2018-01-13 20:45 | RAD ---
INDICATION: Right knee pain COMPARISON: None TECHNIQUE: AP, lateral, tunnel, and sunrise views were obtained. FINDINGS: The bony structures, joint spaces, and soft tissues are normal for age. IMPRESSION: NEGATIVE EXAMINATION
== END 2018-01-13 21:25 | disposition home or self-care (01) ==
LOC: UCEAST 16:43
DX: S83.91XA Sprain of unspecified site of right knee, initial encounter (principal); X50.0XXA Overexertion from strenuous movement or load, initial encounter; Y93.9 Activity, unspecified; Y92.9 Unspecified place or not applicable; F17.210 Nicotine dependence, cigarettes, uncomplicated
CPT/HCPCS: 99213; A9270-GY; G0463

== ENCOUNTER 2018-01-19 00:01 | Emergency (ER) | payer OTHER ==
[2018-01-19] MEDS ORDERED: Naproxen TAB* 250 MG PO ONE (01:52)
--- NOTE | 2018-01-19 01:58 | ED ---
Lower Extremity - HPI Summary HPI Summary: 27yo F states she twisted her R knee while horsing around with her boyfriend 5d ago. She was seen in [facility] and had a negative xray. She has been taking ibuprofen. She is here as it hurts a lot while standing at her job. It doesnt feel unsteady and it hasnt swollen or turned color. She is able to walk. Has Primary appt on and Ortho appt on . - History of Current Complaint Chief Complaint: EDExtremityLower Stated Complaint: RT KNEE PAIN Time Seen by Provider: 01/19/18 01:44 Hx Obtained From: Patient Hx Last Menstrual Period: 01/03/18 Pain Intensity: 9 - Allergies/Home Medications Allergies/Adverse Reactions: Allergies Allergy/AdvReac Type Severity Reaction Status Date / Time MS Sulfa Drugs [Sulfa Drugs] Allergy Intermediate Hives Verified 01/19/18 00:10 PMH/Surg Hx/FS Hx/Imm Hx Endocrine/Hematology History: Reports: Hx Thyroid Disease - Pt unsure if hypo- or hyper Denies: Hx Diabetes Cardiovascular History: Denies: Hx Hypertension Respiratory History: Reports: Hx Asthma Denies: Hx Chronic Obstructive Pulmonary Disease (COPD) GI History: Denies: Hx Ulcer - Surgical History Surgery Procedure, Year, and Place: C section Infectious Disease History: No Infectious Disease History: Denies: Hx Clostridium Difficile, Hx Hepatitis, Hx Human Immunodeficiency Virus (HIV), Hx of Known/Suspected MRSA, Hx Shingles, Hx Tuberculosis, Hx Known/ Suspected VRE, Hx Known/Suspected VRSA, History Other Infectious Disease, Traveled Outside the [place] in Last 30 Days - Family History Known Family History: Positive: Hypertension, Diabetes, Other - CA, thyroid issues - Social History Alcohol Use: Rare Hx Substance Use: No Substance Use Type: Reports: None Hx Tobacco Use: Yes Smoking Status (MU): Light Every Day Tobacco Smoker Amount Used/How Often: 1pack q 3 days. Have You Smoked in the Last Year: No Review of Systems Constitutional: Negative Positive: Arthralgia. Negative: Myalgia, Decreased ROM, Edema Negative: Rash, Bruising Negative: Weakness, Paresthesia, Numbness All Other Systems Reviewed And Are Negative: Yes Physical Exam Triage Information Reviewed: Yes Vital Signs On Initial Exam: Initial Vitals Temp Pulse Resp BP Pulse Ox 36.8 C 112 16 95/70 97 01/19/18 00:05 01/19/18 00:05 01/19/18 00:05 01/19/18 00:05 01/19/18 00:05 Vital Signs Reviewed: Yes Appearance: Positive: Well-Appearing, No Pain Distress Skin: Positive: Warm, Dry Respiratory/Lung Sounds: Positive: Clear to Auscultation, Breath Sounds Present Cardiovascular: Positive: Normal, RRR Musculoskeletal: Positive: Other - R knee without effusion or crepitance. Neg Molly, Lockman, Drawer. Tender in the medial joint line. Nl gait.. Negative : Edema Left, Edema Right Neurological: Positive: Normal, Sensory/Motor Intact, Alert, Oriented to Person Place, Time Psychiatric: Positive: Normal Diagnostics - Vital Signs Vital Signs Temp Pulse Resp BP Pulse Ox 01/19/18 00:05 36.8 C 112 16 95/70 97 - Laboratory Lab Statement: Any lab studies that have been ordered have been reviewed, and results considered in the medical decision making process. Lower Extremity Course/Dx - Course Course Of Treatment: No effusion. Ligamentous exam nl. Has PCP appt on and Ortho on . Nl gait. ALMA here. Neg xrays at [facility]. Here for off work. - Diagnoses Provider Diagnoses: Knee MCL sprain Discharge - Discharge Plan Condition: Good Disposition: HOME Patient Education Materials: Knee Sprain (ED) Forms: *Work Release Referrals: Jose Manuel Lynn MD [Primary Care Provider] - Additional Instructions: Ice, rest, ibuprofen and alma as needed. See PCP on as scheduled and the orthopedist on as scheduled.
[2018-01-19 02:52] VITALS: BP 108/73
== END 2018-01-19 02:50 | disposition home or self-care (01) ==
LOC: ED 00:01
DX: S83.421A Sprain of lateral collateral ligament of right knee, initial encounter (principal); F17.210 Nicotine dependence, cigarettes, uncomplicated; Y93.83 Activity, rough housing and horseplay; Y92.9 Unspecified place or not applicable; X50.1XXA Overexertion from prolonged static or awkward postures, initial encounter
CPT/HCPCS: 99282; A9270-GY

== ENCOUNTER 2018-02-12 11:27 | Emergency (ER) | payer OTHER ==
--- NOTE | 2018-02-12 13:37 | ED ---
- HPI Summary HPI Summary: 27 female presents to ED with complaints of having a positive test on Wednesday02/07/18 and then over the past few days, worsening this morning having vaginal spotting, that turned into bleeding with some clots, along with mild cramping. Patient states she is worried she is having a miscarriage. LMP 2.7.18. Normal bowel movements, no abdominal pain. No concern for STDs or vaginal infection. Soaked through a pad over night. Has had 2 normal pregnancies /births with 2 children, prior to this . Has not yet seen OBGYN as she just found out. No control, normal cycles typically. No PMHx. No medications. No alcohol drug or cigarette use. - History of Current Complaint Chief Complaint: EDOBProblems Stated Complaint: POSS MISCARRIAGE Time Seen by Provider: 02/12/18 13:07 Hx Obtained From: Patient Chief Complaint: Vaginal Bleeding Onset/Duration: Started Days Ago - 1 Timing: Constant Severity: Mild Current Severity: Mild Pain Intensity: 2 Location of Pain: Suprapubic Character: Cramping Aggravating Factors: Nothing Alleviating Factors: Nothing Associated Signs and Symptoms: Positive: Vaginal Bleeding or Discharge - Assessment Hx Now: Yes - "As far as I know, positive test x 2" Hx : 3 Hx Para: 2 History of Ectopic : No Hx Pelvic Inflammatory Disease: No Vaginal Bleeding Amount: Medium Hx Last Menstrual Period: 01/05/18 Hx Hysterectomy: No History of STI/STD: No - Additional Pertinent History Maternal Blood Type and Rh: O Positive - Allergies/Home Medications Allergies/Adverse Reactions: Allergies Allergy/AdvReac Type Severity Reaction Status Date / Time Sulfa (Sulfonamide Allergy Hives Verified 02/12/18 11:28 Antibiotics) PMH/Surg Hx/FS Hx/Imm Hx Endocrine/Hematology History: Reports: Hx Thyroid Disease - Pt unsure if hypo- or hyper Denies: Hx Diabetes Cardiovascular History: Denies: Hx Hypertension, Hx Pacemaker/ICD Respiratory History: Reports: Hx Asthma Denies: Hx Chronic Obstructive Pulmonary Disease (COPD) GI History: Denies: Hx Ulcer Sensory History: Denies: Hx Hearing Aid Psychiatric History: Denies: Hx Panic Disorder - Surgical History Surgery Procedure, Year, and Place: C section - Immunization History Immunizations Up to Date: Yes Infectious Disease History: No Infectious Disease History: Denies: Hx Clostridium Difficile, Hx Hepatitis, Hx Human Immunodeficiency Virus (HIV), Hx of Known/Suspected MRSA, Hx Shingles, Hx Tuberculosis, Hx Known/ Suspected VRE, Hx Known/Suspected VRSA, History Other Infectious Disease, Traveled Outside the [place] in Last 30 Days - Family History Known Family History: Positive: Hypertension, Diabetes, Other - CA, thyroid issues - Social History Alcohol Use: Rare Hx Substance Use: No Substance Use Type: Reports: None Hx Tobacco Use: Yes Smoking Status (MU): Light Every Day Tobacco Smoker Amount Used/How Often: 1pack q 3 days. Have You Smoked in the Last Year: No Review of Systems Constitutional: Negative Cardiovascular: Negative Respiratory: Negative Positive: Other - lower abdominal cramping Positive: other - vaginal bleeding Musculoskeletal: Negative All Other Systems Reviewed And Are Negative: Yes Physical Exam - Physical Exam Triage Information Reviewed: Yes Vital Signs On Initial Exam: temp: 99.1 O2: 98 resp: 16 HR: 84 BP: 103/54 Vital Signs Reviewed: Yes Appearance: Positive: Well-Appearing, No Pain Distress - tearful, Well-Nourished Skin: Positive: Warm, Skin Color Reflects Adequate Perfusion, Dry. Negative: Cold, Numb, Cyanosis @, Pale, Erythema @ Head/Face: Positive: Normal Head/Face Inspection Eyes: Positive: Conjunctiva Clear ENT: Positive: Pharynx normal Respiratory/Lung Sounds: Positive: Clear to Auscultation, Breath Sounds Present. Negative: Rales, Rhonchi, Wheezes Cardiovascular: Positive: Normal, RRR, Pulses are Symmetrical in both Upper and Lower Extremities. Negative: Murmur, Rub Abdomen Description: Positive: Nontender, No Organomegaly, Soft, Other: - minimally tender on palpation of lower abdomen/suprapubic and ovary area. pelvic deferred due to heavy bleeding and no concern for infection. Negative: CVA Tenderness (R), CVA Tenderness (L), Distended, Guarding, McBurney's Point Tenderness, Peritoneal Signs, Pulsatile Mass Bowel Sounds: Positive: Present Musculoskeletal: Positive: Normal, Strength/ROM Intact Neurological: Positive: Normal, Sensory/Motor Intact, Alert, Oriented to Person Place, Time Diagnostics - Vital Signs Vital Signs Temp Pulse Resp BP Pulse Ox 02/12/18 11:30 98.2 F 102 18 120/75 99 - Laboratory Result Diagrams: 02/12/18 13:29 02/12/18 13:29 Lab Statement: Any lab studies that have been ordered have been reviewed, and results considered in the medical decision making process. - Ultrasound No standard instances Ultrasound Interpretation: Positive (See Comments) - No sonographic evidence of intrauterine gestation. Diagnostic possibilities include a too early to visualize, missed or ectopic . Close clinical follow-up including trending beta-hCG is advised. Ultrasound Interpretation Completed By: Radiologist Course/Dx - Course Course Of Treatment: appears patient had potential missed with hcg of 59 positive tests 1 week ago, missed period and having symptoms of miscarriage with vaginal bleeding. although early versus ectopic is still on differential due to US report and patient will need to be closely followed with repeat US and trending HCG. Appears HCG is too low going by LMP. No other concerns at this time. Follow up with OBGYN, does have appt on wednesday. AWare of worsening signs and symptoms and to return immediately if occur. patient updated on results agrees and understands plan. no further complaints. normal vitals. - Differential Diagnosis/HQI/PQRI: Incomplete , Missed , Ectopic , Early - Diagnoses Provider Diagnoses: Vaginal bleeding, Missed Discharge - Discharge Plan Condition: Good Disposition: HOME Patient Education Materials: Ectopic (ED), Miscarriage (ED) Referrals: Jose Manuel Lynn MD [Primary Care Provider] - Arvind Ibanez MD [Medical Doctor] - Additional Instructions: Take tylenol for any discomfort if needed. Apply warm compresses. Increase fluid and iron intake. Follow up on Wednesday with OBGYN for repeat HCG and ultrasound. Any new or worsening symptoms in the mean time please return/seek medical attention promptly.
[2018-02-12 13:44] LABS: Hematocrit 37 % (35-47); Hemoglobin 12.2 g/dl (12.0-16.0); Mean Corpuscular HGB Conc 33 g/dl (31-36); Mean Corpuscular Hemoglobin 31 pg (27-31); Mean Corpuscular Volume 94 fL (80-97); Mean Platelet Volume 10 um3 (7.4-10.4); Platelet Count 151 10^3/ul (150-450); Red Blood Count 3.89 10^6/ul (4.0-5.4); Red Cell Distribution Width 16 % (10.5-15); White Blood Count 5.2 10^3/ul (3.5-10.8)
[2018-02-12 14:00] LABS: EGFR Non-African American 126.7 (>60)
--- NOTE | 2018-02-12 15:27 | RAD ---
HISTORY: Bleeding in a female COMPARISONS: None TECHNIQUE: Multiple transverse and longitudinal ultrasound images were obtained of the pelvis using grayscale, color flow, spectral and M-mode sonographic imaging. FINDINGS: UTERUS: The uterus is normal in shape, size, contour, and echotexture. GESTATION: There is no gestational sac or products of conception identified. CUL-DE-SAC: There is a small to moderate amount of free fluid in the cul-de-sac. RIGHT OVARY: The right ovary measures 3.4 x 2.9 x 2.2 cm. LEFT OVARY: The left ovary measures 3.1 x 2.4 x 2.2 cm. Within the left ovary there is an echogenic and avascular structure measuring 1.1 cm in greatest dimension that either could be a corpus luteum or a involuting/hemorrhagic follicle according to the beta-hCG status. IMPRESSION: No sonographic evidence of intrauterine gestation. Diagnostic possibilities include a too early to visualize, missed or ectopic . Close clinical follow-up including trending beta-hCG is advised.
[2018-02-12 15:53] VITALS: BP 109/61
== END 2018-02-12 15:52 | disposition home or self-care (01) ==
LOC: ED 11:27
DX: O02.1 Missed abortion (principal); O46.90 Antepartum hemorrhage, unspecified, unspecified trimester
CPT/HCPCS: 36415; 76817; 80053; 84702; 85027; 99282

== ENCOUNTER 2018-05-04 11:04 | Emergency (ER) | payer MEDICAID, OTHER ==
[2018-05-04] MEDS ORDERED: oxyCODONE/Acetamin 5/325 MG* TAB PO ONE (11:35)
--- NOTE | 2018-05-04 12:30 | RAD ---
HISTORY: Left-sided rib pain COMPARISONS: April 19, 2018 VIEWS: 5, Frontal view of the chest with frontal and oblique views of the left hemithorax FINDINGS: There is no displaced rib fracture or pneumothorax. The visualized lungs are clear. There is a scoliotic curvature of the spine. IMPRESSION: NO DISPLACED RIB FRACTURE OR PNEUMOTHORAX. IF THERE IS PERSISTENT CLINICAL CONCERN FOR OSSEOUS PATHOLOGY OF THE RIBS, BONE SCANNING MAY BE MORE SENSITIVE.
[2018-05-04] MEDS ORDERED: Famotidine TAB* 20 MG PO ONE (12:38)
[2018-05-04 13:10] VITALS: BP 118/59
--- NOTE | 2018-05-04 14:45 | ED ---
Anna Moore Rebecca, scribed for Ramsey Arora MD on 05/04/18 at 1127 . HPI Chest Pain - HPI Summary HPI Summary: Pt is a 27 y/o F who presents to ED c/o left lateral rib pain. Sx began about 1 month ago and have been gradually worsening since onset, particularly worse this morning upon waking up. Pain was severe, on triage, ranked 9/10. Has been alternating Tramadol and Ibuprofen to treat pain. 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 Sx aggravated by deep breaths. Additionally c/o mild back and abdominal pain. Has seen her PCP for this issue, about 1.5 weeks after onset of pain which showed no fracture, though she states that her PCP believed there was a fracture that was not visualized. Is not on oral contraceptives. LNMP about 1 month ago. - History of Current Complaint Chief Complaint: EDChestWallPain Time Seen by Provider: 05/04/18 11:18 Hx Obtained From: Patient Hx Last Menstrual Period: 01/03/18 Onset/Duration: Started Weeks Ago - 1 month, Still Present Current Severity: Severe Pain Intensity: 9 Pain Scale Used: 0-10 Numeric Chest Pain Location: Left Lateral - Rib Aggravating Factor(s): Deep Breaths Associated Signs and Symptoms: Positive: Abdominal Pain - Allergy/Home Medications Allergies/Adverse Reactions: Allergies Allergy/AdvReac Type Severity Reaction Status Date / Time Sulfa (Sulfonamide Allergy Hives Verified 05/04/18 11:17 Antibiotics) Home Medications: Home Medications Acetaminophen [Acetaminophen Extra Strength] 1,000 mg PO BID PRN 05/04/18 [ History Confirmed 05/04/18] traMADol TAB* [Ultram*] 50 mg PO Q6HR PRN 05/04/18 [History Confirmed 05/04/18] PMH/Surg Hx/FS Hx/Imm Hx Endocrine/Hematology History: Reports: Hx Thyroid Disease - Pt unsure if hypo- or hyper Denies: Hx Diabetes Cardiovascular History: Denies: Hx Hypertension, Hx Pacemaker/ICD Respiratory History: Reports: Hx Asthma Denies: Hx Chronic Obstructive Pulmonary Disease (COPD) GI History: Denies: Hx Ulcer Sensory History: Denies: Hx Hearing Aid Psychiatric History: Denies: Hx Panic Disorder - Surgical History Surgery Procedure, Year, and Place: C section Infectious Disease History: No Infectious Disease History: Denies: Hx Clostridium Difficile, Hx Hepatitis, Hx Human Immunodeficiency Virus (HIV), Hx of Known/Suspected MRSA, Hx Shingles, Hx Tuberculosis, Hx Known/ Suspected VRE, Hx Known/Suspected VRSA, History Other Infectious Disease, Traveled Outside the [place] in Last 30 Days - Family History Known Family History: Positive: Hypertension, Diabetes, Other - CA, thyroid issues - Social History Alcohol Use: Rare Hx Substance Use: No Substance Use Type: Reports: None Hx Tobacco Use: Yes Smoking Status (MU): Light Every Day Tobacco Smoker Amount Used/How Often: 1pack q 3 days. Have You Smoked in the Last Year: No Review of Systems Positive: Other - Left lateral rib pain Positive: Abdominal Pain Positive: Other - Mild back pain All Other Systems Reviewed And Are Negative: Yes Physical Exam - Summary Physical Exam Summary: Appearance: Well appearing, no pain distress Skin: warm, dry, reflects adequate perfusion Head/face: normal Eyes: EOMI, RADHA ENT: normal Neck: supple, non-tender Respiratory: CTA, breath sounds present Cardiovascular: RRR, pulses symmetrical Abdomen: non-tender, soft Bowel Sounds: present Musculoskeletal: the 8th rib is anteriorly tender and easily palpable as she is thin; strength/ROM intact Neuro: normal, sensory motor intact, A&Ox3 Triage Information Reviewed: Yes Vital Signs On Initial Exam: Initial Vitals Temp Pulse Resp BP Pulse Ox 97.8 F 85 18 109/62 100 05/04/18 11:13 05/04/18 11:13 05/04/18 11:13 05/04/18 11:13 05/04/18 11:13 Vital Signs Reviewed: Yes Diagnostics - Vital Signs Vital Signs Temp Pulse Resp BP Pulse Ox 05/04/18 11:13 97.8 F 85 18 109/62 100 - Laboratory Lab Results: Lab Results 05/04/18 05/04/18 Range/Units 11:37 11:38 D-Dimer, Quantitative < 200 (Less Than 230) ng/mL Beta HCG, Quant 41.56 mIU/mL Lab Statement: Any lab studies that have been ordered have been reviewed, and results considered in the medical decision making process. - Radiology Ribs w/ CXR Radiology Interpretation Completed By: Radiologist - Patient Name: ADRIANA GRAY Medical Record#: [id number] Ordering Physician: Ramsey Arora MD Acct.#: [id number] : 1990 Age: 27 Sex: F Location: EMERGENCY DEPARTMENT Exam Date: 05/04/18 1134 ADM Status: REG ER Order Information: RIBS LT UNI W/PA CH MIN 3 VWS Accession Number: [id number] CPT: 92390 HISTORY: Left-sided rib pain COMPARISONS: April 19, 2018 VIEWS: 5, Frontal view of the chest with frontal and oblique views of the left hemithorax FINDINGS: There is no displaced rib fracture or pneumothorax. The visualized lungs are clear. There is a scoliotic curvature of the spine. IMPRESSION: NO DISPLACED RIB FRACTURE OR PNEUMOTHORAX. IF THERE IS PERSISTENT CLINICAL CONCERN FOR OSSEOUS PATHOLOGY OF THE RIBS, BONE SCANNING MAY BE MORE SENSITIVE. ____ <Electronically signed by Aguilar Vega MD in OV> 05/04/18 1226 Dictated By: Aguilar Vega MD Dictated Date/Time: 05/04/18 1226 Transcribed Date/Time: 05/04/18 1226 Copy to: Chest Pain Course/Dx - Course Course Of Treatment: Patient with approximately 1 month worse at symptoms. Arty on opiate treatment from her doctor. X-rays repeated today without any evidence for fracture, pneumonia. She is also found to have elevated hCG consistent with early . menstrual period is due any day now, last being approximately 1 month ago. Improved here with treatment. Will place on Tylenol, Pepcid for possible GI related. 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 - Chest Pain Differential Diagnosis/HQI/PQRI: Chest Wall, GI Disease, Lower Respiratory Infection - Diagnoses Provider Diagnoses: Chest wall pain, Early stage of Discharge - Sign-Out/Discharge Documenting (check all that apply): Discharge/Admit/Transfer - Discharge Plan Condition: Good Disposition: HOME Prescriptions: Cyclobenzaprine (NF) [Cyclobenzaprine 5 MG (NF)] 5 mg PO TID PRN #12 tab PRN Reason: muscle pain Famotidine TAB* [Pepcid 20 MG TAB*] 20 mg PO BID PRN #30 tab PRN Reason: heartburn/chest pain Patient Education Materials: (ED), Chest Wall Pain (ED) Forms: *Work Release Referrals: Sidney Gagnon MD [Medical Doctor] - Jose Manuel Lynn MD [Primary Care Provider] - Additional Instructions: Discontinue any anti-inflammatory medication such as ibuprofen, Aleve or aspirin. You may take Tylenol or your prescribed tramadol. Limit the amount of tramadol. Avoid spicy foods, alcohol, caffeine. Take your vitamin. Return if worse, fever, vomiting, new symptoms or other concerns as discussed. Call your doctor today to follow-up. - Billing Disposition and Condition Condition: GOOD Disposition: Home The documentation as recorded by the Anna barrera Rebecca accurately reflects the service I personally performed and the decisions made by me, Ramsey Arora MD.
== END 2018-05-04 13:08 | disposition home or self-care (01) ==
LOC: ED 11:04
DX: O26.91 Pregnancy related conditions, unspecified, first trimester (principal); R07.89 Other chest pain; Z3A.00 Weeks of gestation of pregnancy not specified; E07.9 Disorder of thyroid, unspecified; J45.909 Unspecified asthma, uncomplicated; Z88.2 Allergy status to sulfonamides; Z82.49 Family history of ischemic heart disease and other diseases of the circulatory system; Z83.3 Family history of diabetes mellitus; Z83.49 Family history of other endocrine, nutritional and metabolic diseases; F17.200 Nicotine dependence, unspecified, uncomplicated
CPT/HCPCS: 36415; 84702; 85379; 99282; A9270-GY

== ENCOUNTER 2018-06-12 20:50 | Emergency (ER) | payer MEDICAID ==
[2018-06-12] MEDS ORDERED: Ondansetron ODT TAB* 4 MG PO ONE (21:18)
[2018-06-12] MEDS ORDERED: Acetaminophen TAB* 325 MG PO ONE (21:18)
--- NOTE | 2018-06-12 21:24 | ED ---
Abdominal Pain/Female - HPI Summary HPI Summary: Patient possibly complaining of intermittent bilateral lower crampy abdominal pain, N/V 2 days. LMP around 5 weeks ago, positive home test one week ago. Denies fever, vaginal symptoms, urinary symptoms, change in bowel movements, peripheral edema, CP, SOB. Medical history is asthma, anemia. Abdominal/pelvic surgical history 1. A2. Denies history of prior ectopic - History of Current Complaint Chief Complaint: EDAbdPain Stated Complaint: ABD PAIN Time Seen by Provider: 06/12/18 21:01 Hx Obtained From: Patient Hx Last Menstrual Period: 01/03/18 Onset/Duration: Gradual Onset Timing: Intermittent Episode Lasting Severity Initially: Mild Severity Currently: Mild Pain Intensity: 3 Pain Scale Used: 0-10 Numeric Location: Discrete At: RLQ, Discrete At: LLQ, Suprapubic Radiates: No Character: Cramping Aggravating Factor(s): Nothing Alleviating Factor(s): Nothing Associated Signs and Symptoms: Positive: Nausea, Vomiting Allergies/Adverse Reactions: Allergies Allergy/AdvReac Type Severity Reaction Status Date / Time Sulfa (Sulfonamide Allergy Hives Verified 06/12/18 20:54 Antibiotics) PMH/Surg Hx/FS Hx/Imm Hx Endocrine/Hematology History: Reports: Hx Thyroid Disease - Pt unsure if hypo- or hyper Denies: Hx Anticoagulant Therapy, Hx Diabetes Cardiovascular History: Denies: Hx Hypertension, Hx Pacemaker/ICD Respiratory History: Reports: Hx Asthma Denies: Hx Chronic Obstructive Pulmonary Disease (COPD) GI History: Denies: Hx Ulcer History: Denies: Hx Dialysis Sensory History: Denies: Hx Hearing Aid Neurological History: Denies: Hx CVA Psychiatric History: Denies: Hx Panic Disorder - Surgical History Surgery Procedure, Year, and Place: C section Infectious Disease History: No Infectious Disease History: Denies: Hx Clostridium Difficile, Hx Hepatitis, Hx Human Immunodeficiency Virus (HIV), Hx of Known/Suspected MRSA, Hx Shingles, Hx Tuberculosis, Hx Known/ Suspected VRE, Hx Known/Suspected VRSA, History Other Infectious Disease, Traveled Outside the [place] in Last 30 Days - Family History Known Family History: Positive: Hypertension, Diabetes, Other - CA, thyroid issues - Social History Alcohol Use: Rare Hx Substance Use: No Substance Use Type: Reports: None Hx Tobacco Use: Yes Smoking Status (MU): Light Every Day Tobacco Smoker Amount Used/How Often: 1pack q 3 days. Have You Smoked in the Last Year: No Review of Systems Constitutional: Negative Eyes: Negative ENT: Negative Cardiovascular: Negative Respiratory: Negative Positive: Abdominal Pain, Vomiting, Nausea Genitourinary: Negative Musculoskeletal: Negative Skin: Negative Neurological: Negative Psychological: Normal All Other Systems Reviewed And Are Negative: Yes Physical Exam - Summary Physical Exam Summary: Abdomen soft, mildly tender diffusely with palpation. No peripheral edema. Triage Information Reviewed: Yes Vital Signs On Initial Exam: Initial Vitals Temp Pulse Resp BP Pulse Ox 98.6 F 87 17 126/70 99 06/12/18 20:51 06/12/18 20:51 06/12/18 20:51 06/12/18 20:51 06/12/18 20:51 Vital Signs Reviewed: Yes Appearance: Positive: Well-Appearing Skin: Positive: Warm Head/Face: Positive: Normal Head/Face Inspection Eyes: Positive: Normal Neck: Positive: Supple Respiratory/Lung Sounds: Positive: Clear to Auscultation Cardiovascular: Positive: Normal Abdomen Description: Positive: Other: Musculoskeletal: Positive: Normal Neurological: Positive: Normal Psychiatric: Positive: Normal AVPU Assessment: Alert - Anders Coma Scale Best Eye Response: 4 - Spontaneous Best Motor Response: 6 - Obeys Commands Best Verbal Response: 5 - Oriented Coma Scale Total: 15 Diagnostics - Vital Signs Vital Signs Temp Pulse Resp BP Pulse Ox 06/12/18 20:51 98.6 F 87 17 126/70 99 - Laboratory Result Diagrams: 06/12/18 22:14 06/12/18 22:14 Lab Statement: Any lab studies that have been ordered have been reviewed, and results considered in the medical decision making process. Abdominal Pain Fem Course/Dx - Course Course Of Treatment: Patient possibly complaining of intermittent bilateral lower crampy abdominal pain, N/V 2 days. LMP around 5 weeks ago, positive home test one week ago. Denies fever, vaginal symptoms, urinary symptoms, change in bowel movements, peripheral edema, CP, SOB. Medical history is asthma, anemia. Abdominal/pelvic surgical history 1. A2. Denies history of prior ectopic . PE: Abdomen soft, mildly tender diffusely with palpation. No peripheral edema. Labs unremarkable. Vital signs other than fluctuation in BP unremarkable. Patient states she had to leave before ultrasound results came back. Patient was advised of risks of ectopic as a potential lide threat. Patient expressed understanding of risk. Persistent in her desire to leave AMA. Was advised we would call her if results of ultrasound warranted. Also advised patient that she should return for any concerning symptoms. Patient understands and approves the plan. - Diagnoses Provider Diagnoses: Discharge - Sign-Out/Discharge Documenting (check all that apply): Patient Departure - Discharge Plan Condition: Stable Disposition: AGAINST MEDICAL ADVICE Patient Education Materials: Ectopic (DC), (ED) Referrals: Jose Manuel Lynn MD [Primary Care Provider] - Additional Instructions: Follow up with TRANSITION ASSISTANT. Return to the ED for any new or worsening symptoms - Billing Disposition and Condition Condition: STABLE Disposition: Against Medical Advice
[2018-06-12 21:37] LABS: Urine Appearance Clear; Urine Blood Negative (Negative); Urine Color Colorless; Urine Ketones Negative (Negative); Urine Protein Negative (Negative); Urine Specific Gravity 1.003 (1.010-1.030); Urine Urobilinogen Negative (Negative)
[2018-06-12 22:23] LABS: ABS Basophils 0.1 10^3/ul (0-0.2); ABS Eosinophils 0.3 10^3/ul (0-0.6); ABS Lymphocytes 2.3 10^3/ul (1.0-4.8); ABS Monocytes 0.7 10^3/ul (0-0.8); ABS Neutrophils 3.4 10^3/ul (1.5-7.7); ABS Nucleated RBC 0 10^3/ul; Eosinophil % 4.3 % (0-6); Hematocrit 34 % (35-47); Hemoglobin 11.8 g/dl (12.0-16.0); Lymphocyte % 34.6 % (25-47); Mean Corpuscular HGB Conc 35 g/dl (31-36); Mean Corpuscular Hemoglobin 33 pg (27-31); Mean Corpuscular Volume 95 fL (80-97); Mean Platelet Volume 9.6 um3 (7.4-10.4); Nucleated Red Blood Cells % 0; Platelet Count 182 10^3/ul (150-450); Red Blood Count 3.58 10^6/ul (4.00-5.40); Red Cell Distribution Width 15 % (10.5-15); White Blood Count 6.7 10^3/ul (3.5-10.8)
[2018-06-12 22:42] LABS: EGFR Non-African American 117.3 (>60)
[2018-06-13 00:58] VITALS: BP 101/53
--- NOTE | 2018-06-13 07:35 | RAD ---
Indication: , unknown duration with abdominal pain. Real-time sonography of the was performed utilizing endovaginal technique. There is a intrauterine gestational sac with a mean sac size of 1.3 cm corresponding to gestational age of 6 weeks 0 days. A 0.4 cm yolk sac is noted. This corresponds to gestational age of 6 weeks 0 days. No pole is present. The uterus and cervix are unremarkable. The right ovary measures 4.1 x 2.2 x 4.1 cm. A hypoechoic complex cyst measuring up to 2.4 x 1.9 x 3.8 cm may represent a corpus luteum cyst in the right ovary. The left ovary measures 2.3 x 1.9 x 2.6 cm. Doppler interrogation demonstrates flow in both ovaries. IMPRESSION: Intrauterine gestational sac with a mean sac size corresponding to a gestational age of 6 weeks 0 days although no pole is identified. Follow-up exam in one to 2 weeks. Right ovarian corpus luteal cyst.
== END 2018-06-13 00:56 | disposition left against medical advice (07) ==
LOC: ED 20:50
DX: O26.891 Other specified pregnancy related conditions, first trimester (principal); N83.11 Corpus luteum cyst of right ovary; R10.30 Lower abdominal pain, unspecified; R11.2 Nausea with vomiting, unspecified; Z3A.01 Less than 8 weeks gestation of pregnancy; E07.9 Disorder of thyroid, unspecified; J45.909 Unspecified asthma, uncomplicated; Z88.2 Allergy status to sulfonamides; Z82.49 Family history of ischemic heart disease and other diseases of the circulatory system; Z83.3 Family history of diabetes mellitus; Z80.9 Family history of malignant neoplasm, unspecified; F17.210 Nicotine dependence, cigarettes, uncomplicated
CPT/HCPCS: 36415; 76817; 80053; 81003; 83690; 84702; 85025; 86140; 99283; A9270-GY

== ENCOUNTER 2018-07-04 13:19 | Emergency (ER) | payer MEDICAID ==
[2018-07-04 14:13] LABS: Hematocrit 35 % (35-47); Hemoglobin 11.9 g/dl (12.0-16.0); Mean Corpuscular HGB Conc 34 g/dl (31-36); Mean Corpuscular Hemoglobin 33 pg (27-31); Mean Corpuscular Volume 96 fL (80-97); Mean Platelet Volume 9.8 um3 (7.4-10.4); Platelet Count 137 10^3/ul (150-450); Red Blood Count 3.64 10^6/ul (4.00-5.40); Red Cell Distribution Width 14 % (10.5-15); White Blood Count 7.7 10^3/ul (3.5-10.8)
[2018-07-04 14:33] LABS: EGFR Non-African American 129.2 (>60)
[2018-07-04] MEDS ORDERED: Acetaminophen TAB* 325 MG PO ONE (14:52)
--- NOTE | 2018-07-04 15:40 | RAD ---
Indication: Lower abdominal pain. Real-time sonography of the was performed. There is a single intrauterine gestation with a mean gestational sac size of 3.6 cm corresponding to gestational age of 9 weeks 1 day. The pole is identified measuring 2.3 cm corresponding to gestational age of 9 weeks 0 days. Estimated gestational age is 9 weeks 1 day. Estimated date delivery is February 05, 2019. heart activity is noted at 176 bpm. movement is noted. The uterus measures 10.9 x 6.4 x 8.2 cm. The right ovary measures 3.9 x 2.3 x 2.6 cm. Involuting cystic structure right ovary measures 3.2 x 1.6 x 2.5 cm. The left ovary measures 2.6 x 1.5 x 1.7 cm. No adnexal masses are noted. IMPRESSION: There is a single intrauterine gestation with a gestational age of 9 weeks 1 day with estimated date delivery of February 05, 2019. heart activity is noted at 176 bpm. movement is noted.
--- NOTE | 2018-07-04 15:59 | ED ---
Abdominal Pain/Female - HPI Summary HPI Summary: This is scribe Cuate Cranesain documenting for attending Dr. Yash Agustin MD. A 27 y/o female presents to ED c/o abdominal pain reaching 7/10 in severity. Additionally c/o dull back pain from her scoliosis. As per triage, "pt is 9 weeks and has been having abd pain since yesterday. Pt denies any bleeding, Some cramping, has had n/v on and off since the but the pain started today". According to the patient she has been experiencing intermittent lower abdominal pain since yesterday, however, she feels it has been radiating higher. She noted that her apparel manager noticed how she has been getting worse, so he recommended her to go to ED. Patient denies any nausea, burning or pain with urination, however has frequent urination and has been vomiting (not last few days). Also, she feels like she has a fever, but apparently she doesn't according to the temperature reading in triage. As per mother, patient can keep chicken down. Last bowel movement was today. No current medications. A2. - History of Current Complaint Chief Complaint: EDAbdPain Stated Complaint: ABD PAIN Time Seen by Provider: 07/04/18 13:53 Hx Obtained From: Patient Hx Last Menstrual Period: 01/03/18 ?: Yes - 9 weeks. Onset/Duration: Sudden Onset, Lasting Days, Still Present Timing: Days Severity Initially: Moderate Severity Currently: Moderate Pain Intensity: 7 Pain Scale Used: 0-10 Numeric Location: Suprapubic Radiates: Yes Radiates to: Other - Higher from lower abdomen. Aggravating Factor(s): Nothing Alleviating Factor(s): Nothing Associated Signs and Symptoms: Positive: Back Pain, Urinary Symptoms - Frequent urination., Vomiting. Negative: Nausea Allergies/Adverse Reactions: Allergies Allergy/AdvReac Type Severity Reaction Status Date / Time Sulfa (Sulfonamide Allergy Hives Verified 06/12/18 20:54 Antibiotics) PMH/Surg Hx/FS Hx/Imm Hx Endocrine/Hematology History: Reports: Hx Thyroid Disease - Pt unsure if hypo- or hyper Denies: Hx Anticoagulant Therapy, Hx Diabetes Cardiovascular History: Denies: Hx Hypertension, Hx Pacemaker/ICD Respiratory History: Reports: Hx Asthma Denies: Hx Chronic Obstructive Pulmonary Disease (COPD) GI History: Denies: Hx Ulcer History: Denies: Hx Dialysis Sensory History: Denies: Hx Hearing Aid Neurological History: Denies: Hx CVA Psychiatric History: Denies: Hx Panic Disorder - Surgical History Surgery Procedure, Year, and Place: C section - Immunization History Immunizations Up to Date: Yes Infectious Disease History: No Infectious Disease History: Denies: Hx Clostridium Difficile, Hx Hepatitis, Hx Human Immunodeficiency Virus (HIV), Hx of Known/Suspected MRSA, Hx Shingles, Hx Tuberculosis, Hx Known/ Suspected VRE, Hx Known/Suspected VRSA, History Other Infectious Disease, Traveled Outside the [place] in Last 30 Days - Family History Known Family History: Positive: Hypertension, Diabetes, Other - CA, thyroid issues - Social History Alcohol Use: Rare Hx Substance Use: No Substance Use Type: Reports: None Hx Tobacco Use: Yes Smoking Status (MU): Former Smoker Amount Used/How Often: 1pack q 3 days. Have You Smoked in the Last Year: No Review of Systems Negative: Fever - Feels like she had fever, unsure., Chills Negative: Erythema Negative: Sore Throat Negative: Chest Pain Negative: Shortness Of Breath, Cough Positive: Abdominal Pain, Vomiting - Possibly resolved.. Negative: Nausea Positive: frequency - Increased. Negative: burning, dysuria, hematuria, pain Positive: Other - POSITIVE: Dull back pain. . Negative: Myalgia, Edema Negative: Rash Neurological: Other - NEGATIVE: Dizziness All Other Systems Reviewed And Are Negative: Yes Physical Exam - Summary Physical Exam Summary: Constitutional: Well-developed, Well-nourished, Alert. (-) Distressed Skin: Warm, Dry HENT: Normocephalic; Atraumatic Eyes: Conjunctiva normal Neck: Musculoskeletal ROM normal neck. (-) JVD, (-) Stridor, (-) Tracheal deviation Cardio: Rhythm regular, rate normal, Heart sounds normal; Intact distal pulses; The pedal pulses are 2+ and symmetric. Radial pulses are 2+ and symmetric. (-) Murmur Pulmonary/Chest wall: Effort normal. (-) Respiratory distress, (-) Wheezes, (-) Rales Abd: Soft, (-) epigastric tenderness, (-) Distension, (-) Guarding, (-) Rebound. Mild suprapubic tenderness. Musculoskeletal: (-) Edema Lymph: (-) Cervical adenopathy Neuro: Alert, Oriented x3 Psych: Mood and affect Normal Triage Information Reviewed: Yes Vital Signs On Initial Exam: Initial Vitals Temp Pulse Resp BP Pulse Ox 97.6 F 79 16 112/75 98 07/04/18 13:22 07/04/18 13:22 07/04/18 13:22 07/04/18 13:22 07/04/18 13:22 Vital Signs Reviewed: Yes Diagnostics - Vital Signs Vital Signs Temp Pulse Resp BP Pulse Ox 07/04/18 13:22 97.6 F 79 16 112/75 98 - Laboratory Lab Results: Lab Results 07/04/18 07/04/18 07/04/18 Range/Units 14:05 14:05 14:05 WBC 7.7 (3.5-10.8) 10^3/ul RBC 3.64 L (4.00-5.40) 10^6/ul Hgb 11.9 L (12.0-16.0) g/dl Hct 35 (35-47) % MCV 96 (80-97) fL MCH 33 H (27-31) pg MCHC 34 (31-36) g/dl RDW 14 (10.5-15) % Plt Count 137 L (150-450) 10^3/ul MPV 9.8 (7.4-10.4) um3 Sodium 136 (135-145) mmol/L Potassium 3.9 (3.5-5.0) mmol/L Chloride 104 (101-111) mmol/L Carbon Dioxide 25 (22-32) mmol/L Anion Gap 7 (2-11) mmol/L BUN 7 (6-24) mg/dL Creatinine 0.57 (0.51-0.95) mg/dL Est GFR ( Amer) 156.4 (>60) Est GFR (Non-Af Amer) 129.2 (>60) BUN/Creatinine Ratio 12.3 (8-20) Glucose 72 (70-100) mg/dL Calcium 9.3 (8.6-10.3) mg/dL Total Bilirubin 0.30 (0.2-1.0) mg/dL AST 14 (13-39) U/L ALT 9 (7-52) U/L Alkaline Phosphatase 42 (34-104) U/L Total Protein 6.7 (6.4-8.9) g/dL Albumin 4.1 (3.2-5.2) g/dL Globulin 2.6 (2-4) g/dL Albumin/Globulin Ratio 1.6 (1-3) Beta HCG, Quant 710928.00 mIU/mL Blood Type O Positive Antibody Screen Negative Result Diagrams: 07/04/18 14:05 07/04/18 14:05 Lab Statement: Any lab studies that have been ordered have been reviewed, and results considered in the medical decision making process. - Ultrasound No standard instances Ultrasound Interpretation Completed By: Radiologist - US: There is a single intrauterine gestation with a gestational age of 9 weeks 1 day with estimated date delivery of February 05, 2019. heart activity is noted at 176 bpm. movement is noted. ED physician reviewed this radiology report. Abdominal Pain Fem Course/Dx - Course Course Of Treatment: A 27 y/o female presents to ED c/o abdominal pain reaching 7/10 in severity. Additionally c/o dull back pain from her scoliosis. A US revealed there is a single intrauterine gestation with a gestational age of 9 weeks 1 day with estimated date delivery of February 05, 2019. heart activity is noted at 176 bpm. movement is noted. In the ED course, the patient recieved Tylenol. Patient will be discharged with a diagnosis of urination frequency, abdominal pain and . Patient is to follow up with FOREST NURSERY SUPERVISOR in 2-3 days. Patient is to also follow up with PCP in 2-3 days. Patient is agreeable with this plan. - Diagnoses Provider Diagnoses: Abdominal pain, Urination frequency, Discharge - Sign-Out/Discharge Documenting (check all that apply): Patient Departure - DISCHARGE - Discharge Plan Condition: Stable Disposition: HOME Patient Education Materials: (ED), Abdominal Pain (ED) Forms: *Work Release Referrals: Jose Manuel Lynn MD [Primary Care Provider] - 3 Days Arvind Ibanez MD [Medical Doctor] - 3 Days Additional Instructions: FOLLOW UP WITH PRIMARY CARE PHYSICIAN IN 2-3 DAYS. FOLLOW UP WITH FOREST NURSERY SUPERVISOR IN 2-3 DAYS. RETURN TO ED FOR ANY NEW OR WORSENING SYMPTOMS.
[2018-07-04 16:47] LABS: Urine Appearance Clear; Urine Blood Negative (Negative); Urine Color Colorless; Urine Ketones Negative (Negative); Urine Protein Negative (Negative); Urine Red Blood Cell Trace(0-2/hpf) (Absent); Urine Specific Gravity 1.002 (1.010-1.030); Urine Urobilinogen Negative (Negative); Urine White Blood Cell Trace(0-5/hpf) (Absent)
[2018-07-04 18:14] VITALS: BP 102/66
== END 2018-07-04 18:13 | disposition home or self-care (01) ==
LOC: ED 13:19
DX: O26.891 Other specified pregnancy related conditions, first trimester (principal); R10.9 Unspecified abdominal pain; R35.0 Frequency of micturition; Z3A.09 9 weeks gestation of pregnancy; Z88.2 Allergy status to sulfonamides; Z87.891 Personal history of nicotine dependence
CPT/HCPCS: 36415; 76801; 80053; 81003; 81015; 84702; 85027; 86850; 86900; 86901; 87086; 99282; A9270-GY

== ENCOUNTER 2018-08-02 09:20 | Emergency (ER) | payer OTHER, MEDICAID ==
[2018-08-02] MEDS ORDERED: Metoclopramide TAB* 10 MG PO ONE (10:39)
[2018-08-02] MEDS ORDERED: Acetaminophen TAB* 325 MG PO ONE (10:42)
--- NOTE | 2018-08-02 12:00 | ED ---
Lower Extremity - HPI Summary HPI Summary: Patient is a 27-year-old 13 week female presenting to the ED with complaint of right sided thigh pain over the past 2 days and generalized weakness. She states she has been having episodes of vomiting. 2 days ago she was kneeling on her bilateral knees vomiting in standing at work for long hours , subsequently developing a right thigh pain. Denies any pain to the posterior calf. No history of DVT or PE. She takes vitamins daily, however denies any other medications. She denies any chest pain or shortness of breath. She is not taking medication for relief of symptoms. She called her PCP office this morning and was sent here to rule out DVT. She states she is feeling somewhat weak as she has been having decreased by mouth intake due to nausea vomiting. She recently increased her hours at work to 40 hours per week. - History of Current Complaint Chief Complaint: EDExtremityLower Stated Complaint: RT LEG PAIN/LIGHT HEADED/3 MOS PREG Time Seen by Provider: 08/02/18 09:33 Hx Obtained From: Patient Hx Last Menstrual Period: 01/03/18 Onset of Pain: Days Onset/Duration: Days Severity Initially: Mild Severity Currently: Mild Pain Intensity: 7 Pain Scale Used: 0-10 Numeric Location: Is Discrete @ - right lateral thigh Character Of Pain: Aching Associated Signs And Symptoms: Negative: Swelling, Redness, Bruising Aggravating Factor(s): Standing, Ambulation Alleviating Factor(s): Rest Able to Bear Weight: Yes - Risk Factors Gout Risk Factors: Negative DVT Risk Factors: Septic Arthritis Risk Factor: Negative - Allergies/Home Medications Allergies/Adverse Reactions: Allergies Allergy/AdvReac Type Severity Reaction Status Date / Time Sulfa (Sulfonamide Allergy Hives Verified 06/12/18 20:54 Antibiotics) PMH/Surg Hx/FS Hx/Imm Hx Previously Healthy: Yes Endocrine/Hematology History: Reports: Hx Thyroid Disease - Pt unsure if hypo- or hyper Denies: Hx Anticoagulant Therapy, Hx Diabetes Cardiovascular History: Denies: Hx Hypertension, Hx Pacemaker/ICD Respiratory History: Reports: Hx Asthma Denies: Hx Chronic Obstructive Pulmonary Disease (COPD) GI History: Denies: Hx Ulcer History: Denies: Hx Dialysis Sensory History: Denies: Hx Hearing Aid Neurological History: Denies: Hx CVA Psychiatric History: Denies: Hx Panic Disorder - Surgical History Surgery Procedure, Year, and Place: C section - Immunization History Hx Pertussis Vaccination: No Immunizations Up to Date: Yes Infectious Disease History: No Infectious Disease History: Denies: Hx Clostridium Difficile, Hx Hepatitis, Hx Human Immunodeficiency Virus (HIV), Hx of Known/Suspected MRSA, Hx Shingles, Hx Tuberculosis, Hx Known/ Suspected VRE, Hx Known/Suspected VRSA, History Other Infectious Disease, Traveled Outside the [place] in Last 30 Days - Family History Known Family History: Positive: Hypertension, Diabetes, Other - CA, thyroid issues - Social History Occupation: Unemployed Lives: With Family Alcohol Use: Rare Hx Substance Use: No Substance Use Type: Reports: None Hx Tobacco Use: Yes Smoking Status (MU): Former Smoker Amount Used/How Often: 1pack q 3 days. Have You Smoked in the Last Year: No Review of Systems Constitutional: Negative Negative: Fever, Chills, Fatigue, Skin Diaphoresis Negative: Palpitations, Chest Pain Negative: Shortness Of Breath, Cough Genitourinary: Negative Positive: no symptoms reported, see HPI Positive: Arthralgia - right lateral thigh pain Neurological: Negative All Other Systems Reviewed And Are Negative: Yes Physical Exam Triage Information Reviewed: Yes Vital Signs On Initial Exam: Initial Vitals Temp Pulse Resp BP Pulse Ox 97.8 F 76 16 93/59 100 08/02/18 09:27 08/02/18 09:27 08/02/18 09:27 08/02/18 09:27 08/02/18 09:27 Vital Signs Reviewed: Yes Appearance: Positive: Well-Appearing, Well-Nourished Skin: Positive: Warm, Skin Color Reflects Adequate Perfusion Head/Face: Positive: Normal Head/Face Inspection Eyes: Positive: EOMI, RADHA, Conjunctiva Clear Neck: Positive: Supple, No Lymphadenopathy Respiratory/Lung Sounds: Positive: Clear to Auscultation, Breath Sounds Present Cardiovascular: Positive: RRR, Pulses are Symmetrical in both Upper and Lower Extremities. Negative: Leg Edema Left, Leg Edema Right Musculoskeletal: Positive: Pain @ - right lateral thigh with palpation. Negative: Avinash Sign Left, Edema Left, Edema Right Neurological: Positive: Speech Normal Psychiatric: Positive: Normal, Affect/Mood Appropriate Diagnostics - Vital Signs Vital Signs Temp Pulse Resp BP Pulse Ox 08/02/18 09:27 97.8 F 76 16 93/59 100 - Laboratory Lab Statement: Any lab studies that have been ordered have been reviewed, and results considered in the medical decision making process. Lower Extremity Course/Dx - Course Course Of Treatment: On physical examination, there is no erythema, swelling, pain with palpation to the lower extremity. She endorses some tenderness to the right lateral thigh without bruising, signs of trauma, erythema or ecchymosis. She is given Reglan and is able to take PO in the ED. She'll be discharged with a prescription for Reglan. She is diagnosed with generalized weakness and fatigue secondary to nausea vomiting in . While she is , she still remains a low risk based on no obvious signs or symptoms of DVT. Homans signs negative. She is given strict return precautions and follow- up. - Diagnoses Provider Diagnoses: Thigh pain Discharge - Sign-Out/Discharge Documenting (check all that apply): Patient Departure - Discharge Plan Condition: Stable Disposition: HOME Prescriptions: Metoclopramide TAB* [Reglan TAB*] 10 mg PO Q6H #15 tab Forms: *Work Release Referrals: Jose Manuel Lynn MD [Primary Care Provider] - Additional Instructions: Tylenol 325 four times daily as needed for discomfort Moist heat to the area Reglan up to four times daily as needed for nausea - I have prescribed this IF you need it - but you do not need to pick it up right away was in order Follow up with PCP - Billing Disposition and Condition Condition: STABLE Disposition: Home
[2018-08-02 12:47] VITALS: BP 103/63
== END 2018-08-02 12:46 | disposition home or self-care (01) ==
LOC: ED 09:20
DX: O26.891 Other specified pregnancy related conditions, first trimester (principal); M79.651 Pain in right thigh; Z3A.13 13 weeks gestation of pregnancy; Z87.891 Personal history of nicotine dependence; Z88.2 Allergy status to sulfonamides
CPT/HCPCS: 99282; A9270-GY

== ENCOUNTER 2018-10-17 16:07 | Emergency (ER) | payer OTHER, MEDICAID ==
[2018-10-17 16:42] VITALS: BP 123/68
--- NOTE | 2018-10-17 16:58 | UC ---
Throat Pain/Nasal [place] HPI - HPI Summary HPI Summary: 28-year-old woman here with a chief complaint of sinus congestion. Patient's had sinus congestion for 2 months. She is 5 months . Last couple days as gotten a lot worse. Is much more sinus pressure now and the rhinorrhea is green. She has had a lot of cough and she's got chest pain associated with cough. She has a frontal headache. She does have back pain and neck pain. The back and neck pain hurt worse with cough. She has been taking some Tylenol and some dpno-idx-hhycedj medications was helped briefly but then she gets worse again. - History of Current Complaint Chief Complaint: UCGeneralIllness Stated Complaint: CONGESTION/COUGH ( PREG) Time Seen by Provider: 10/17/18 16:41 Hx Last Menstrual Period: 01/03/18 Pain Intensity: 9 - Allergies/Home Medications Allergies/Adverse Reactions: Allergies Allergy/AdvReac Type Severity Reaction Status Date / Time Sulfa (Sulfonamide Allergy Hives Verified 10/17/18 16:39 Antibiotics) Home Medications: Home Medications Phenylephrine/Dm/Acetaminop/GG [Mucinex Fast-Max Cold Flu] 1 tab PO ONCE [History Confirmed 10/17/18] PMH/Surg Hx/FS Hx/Imm Hx Previously Healthy: Yes Other History Of: Negative For: Anticoagulant Therapy - Surgical History Surgical History: Yes Surgery Procedure, Year, and Place: C section - Family History Known Family History: Positive: Hypertension, Diabetes, Other - CA, thyroid issues - Social History Alcohol Use: None Substance Use Type: None Smoking Status (MU): Former Smoker Amount Used/How Often: 1pack q 3 days. Have You Smoked in the Last Year: No Household Exposure Type: Cigarettes - Immunization History Most Recent Influenza Vaccination: 10/12/13 Most Recent Tetanus Shot: unsure Most Recent Pneumonia Vaccination: never Review of Systems All Other Systems Reviewed And Are Negative: Yes Constitutional: Positive: Negative Skin: Positive: Negative Eyes: Positive: Negative ENT: Positive: Sore Throat, Nasal Discharge, Sinus Congestion, Sinus Pain/ Tenderness Respiratory: Positive: Cough Cardiovascular: Positive: Chest Pain - SEE HPI Gastrointestinal: Positive: Negative Genitourinary: Positive: Negative, Other - 5 months she has been feeling the baby move and she has recently seen her MANAGER REPORT. Motor: Positive: Negative Neurovascular: Positive: Negative Musculoskeletal: Positive: Negative Neurological: Positive: Negative Psychological: Positive: Negative Is Patient Immunocompromised?: No Physical Exam Triage Information Reviewed: Yes Appearance: No Pain Distress, Well-Nourished, Ill-Appearing - MILD Vital Signs: Initial Vital Signs Temp 98.6 F 10/17/18 16:38 Pulse 105 10/17/18 16:38 Resp 12 10/17/18 16:38 BP 123/68 10/17/18 16:38 Pulse Ox 100 10/17/18 16:38 Vital Signs Reviewed: Yes Eye Exam: Normal Eyes: Positive: Conjunctiva Clear ENT: Positive: Pharyngeal erythema, Nasal congestion, Nasal drainage, TMs normal Neck exam: Normal Neck: Positive: Supple, Other: - Patient has complain of some posterior neck tenderness when she touches her chin to her chest Respiratory Exam: Normal Respiratory: Positive: Lungs clear, Normal breath sounds, No respiratory distress Cardiovascular Exam: Normal Cardiovascular: Positive: RRR Abdomen Description: Positive: Other: - GRAVID Musculoskeletal Exam: Normal Musculoskeletal: Positive: Strength Intact, ROM Intact, Other: - Patient is tender to palpation in her back. There is one area of the back lower thoracic upper lumbar area THAT IS most tender to palpation. Neurological Exam: Normal Neurological: Positive: Alert, Muscle Tone Normal Psychological Exam: Normal Psychological: Positive: Age Appropriate Behavior Skin Exam: Normal Throat Pain/Nasal Course/Dx - Course Course Of Treatment: Patient's had rhinorrhea and sinus congestion for 2 months. Because of duration of symptoms and the increased pain and the rhinorrhea being green we'll treat with Augmentin. She will continue with symptomatic treatment. She does have a frontal headache and neck and back pain. At this time she does not clinically have meningitis. I suspect the back pain is due to being ill and having a cough and also potentially with decreased abdominal weight with the . We discussed the diagnosis of meningitis and I let her know that if her condition worsens she needs to get reevaluated in the emergency department. - Differential Dx/Diagnosis Provider Diagnoses: SINUSITIS Discharge - Sign-Out/Discharge Documenting (check all that apply): Patient Departure All imaging exams completed and their final reports reviewed: No Studies - Discharge Plan Condition: Stable Disposition: HOME Prescriptions: Amoxicillin/Clavulanate TAB* [Augmentin TAB 875*] 875 mg PO BID #20 tab Patient Education Materials: Sinusitis (ED) Forms: *Work Release Referrals: Jose Manuel Lynn MD [Primary Care Provider] - Additional Instructions: FOLLOW UP WITH YOUR PRIMARY DOCTOR AND/OR OBGYN IF NOT COMPLETELY IMPROVED. GO TO THE EMERGENCY DEPARTMENT FOR ANY WORSENING OF YOUR CONDITION; HEADACHE, NECK AND BACK PAIN, YOU FEEL ILL OR QUESTIONS OR CONCERNS. - Billing Disposition and Condition Condition: STABLE Disposition: Home
== END 2018-10-17 17:10 | disposition home or self-care (01) ==
LOC: UCCORT 16:07
DX: J32.9 Chronic sinusitis, unspecified (principal); Z88.1 Allergy status to other antibiotic agents; Z87.891 Personal history of nicotine dependence
CPT/HCPCS: 99212; G0463

== ENCOUNTER 2018-11-29 22:55 | Emergency (ER) | payer MEDICAID, OTHER ==
[2018-11-29] MEDS ORDERED: NS 0.9% 1000 ML* 1,000 ML IV ONE (23:06)
--- NOTE | 2018-11-29 23:26 | ED ---
- HPI Summary HPI Summary: Pt is a 28 y/o female who presents to the ED c/o abdominal pain. Shes been having intermittent lower abdominal pain, lower back pain, N/V, lightheadedness , and contractions for the past 3 days. Pt states she thinks its [place] contractions, and rates them an 8/10 in severity. She also reports possible vaginal fluid leakage, and states shes going to the bathroom frequently. She is currently 6.5 months . Pt feels the baby move. , hx . Due date 02/10/19. LNMP early April 2018. She denies any vaginal bleeding or fever. Pt currently has a cold and took Mucinex a few hours ago. - History of Current Complaint Chief Complaint: EDOBProblems Stated Complaint: ABD AND BACK PAIN Time Seen by Provider: 11/29/18 23:21 Hx Obtained From: Patient Chief Complaint: Pain Onset/Duration: Started Days Ago - 3, Still Present Timing: Intermittent Current Severity: Severe Pain Intensity: 8 Location of Pain: Other: - low back, low abdomen Character: Cramping - contractions Aggravating Factors: Nothing Alleviating Factors: Nothing Associated Signs and Symptoms: Positive: Back Pain, Nausea, Urinary Symptoms - frequency, Vomiting. Negative: Fever, Vaginal Bleeding or Discharge - Assessment Hx Now: Yes Hx : 5 Hx Para: 2 SAB: 2 IEA: 0 Hx Pelvic Inflammatory Disease: No Hx Last Menstrual Period: 01/05/18 Hx Hysterectomy: No - Additional Pertinent History Maternal Blood Type and Rh: O Positive - Allergies/Home Medications Allergies/Adverse Reactions: Allergies Allergy/AdvReac Type Severity Reaction Status Date / Time Sulfa (Sulfonamide Allergy Hives Verified 11/29/18 23:04 Antibiotics) PMH/Surg Hx/FS Hx/Imm Hx Endocrine/Hematology History: Reports: Hx Thyroid Disease Denies: Hx Anticoagulant Therapy, Hx Diabetes Cardiovascular History: Denies: Hx Hypertension, Hx Pacemaker/ICD Respiratory History: Reports: Hx Asthma Denies: Hx Chronic Obstructive Pulmonary Disease (COPD) GI History: Denies: Hx Ulcer History: Denies: Hx Dialysis Sensory History: Denies: Hx Hearing Aid Neurological History: Denies: Hx CVA Psychiatric History: Denies: Hx Panic Disorder - Surgical History Surgery Procedure, Year, and Place: C section Infectious Disease History: No Infectious Disease History: Denies: Hx Clostridium Difficile, Hx Hepatitis, Hx Human Immunodeficiency Virus (HIV), Hx of Known/Suspected MRSA, Hx Shingles, Hx Tuberculosis, Hx Known/ Suspected VRE, Hx Known/Suspected VRSA, History Other Infectious Disease, Traveled Outside the [place] in Last 30 Days - Family History Known Family History: Positive: Hypertension, Diabetes, Other - CA, thyroid issues - Social History Alcohol Use: None Hx Substance Use: No Substance Use Type: Reports: None Hx Tobacco Use: Yes Smoking Status (MU): Former Smoker Amount Used/How Often: 1pack q 3 days. Have You Smoked in the Last Year: No Review of Systems Negative: Fever Positive: Abdominal Pain, Vomiting, Nausea Positive: frequency, other - possible vagical discharge, NEGATIVE: vagnial bleeding Positive: Myalgia - low back pain, Other - contractions Neurological: Other - Lightheadedness All Other Systems Reviewed And Are Negative: Yes Physical Exam - Summary Physical Exam Summary: Appearance: Well appearing, no pain distress Skin: warm, dry, reflects adequate perfusion Head/face: normal Eyes: EOMI, RADHA ENT: mucous membranes moist, mild nasal congestion Neck: supple, non-tender Respiratory: CTA, breath sounds present Cardiovascular: RRR, pulses symmetrical, no peripheral edema Abdomen: non-tender, soft, gravid to just below xiphoid, gross movement, no CVA tenderness Bowel Sounds: present Musculoskeletal: normal, strength/ROM intact Neuro: normal, sensory motor intact, A&Ox3 - Physical Exam Triage Information Reviewed: Yes Vital Signs Reviewed: Yes Diagnostics - Vital Signs Vital Signs Temp Pulse Resp BP Pulse Ox 11/29/18 23:20 108 98 11/29/18 23:19 101 122/74 98 11/29/18 22:55 98.4 F 104 16 104/62 98 - Laboratory Result Diagrams: 11/29/18 23:24 11/29/18 23:24 Lab Statement: Any lab studies that have been ordered have been reviewed, and results considered in the medical decision making process. - Ultrasound No standard instances Ultrasound Interpretation Completed By: ED Physician Summary of Ultrasound Findings: Bedside US performed by ED physician: heart tone 140 bpm, head is down. Course/Dx - Course Course Of Treatment: Nurse's notes reviewed. Bedside ultrasound performed on arrival. Placenta is superior without obvious abruption. Fetus is active with heart tones. Patient is comfortable appearing. Discussed the case with [facility] who will take to labor and delivery. Patient is discharged to their care. - Differential Diagnosis/HQI/PQRI: Other: - Abdominal pain in , labor, UTI, uterine abruption - Diagnoses Provider Diagnoses: Abdominal pain during - Provider Notifications Discussed Care Of Patient With: Sidney Gagnon Time Discussed With Above Provider: 23:47 Instructed by Provider To: Other - Dr. Gagnon accepts pt for transfer to OB. Discharge - Sign-Out/Discharge Documenting (check all that apply): Patient Departure - Discharge to OB - Discharge Plan Condition: Stable Disposition: HOME Patient Education Materials: Abdominal Pain in (ED) Referrals: Sidney Gagnon MD [Medical Doctor] - Jose Manuel Lynn MD [Primary Care Provider] - Additional Instructions: Go directly to labor and delivery for further evaluation. - Billing Disposition and Condition Condition: STABLE Disposition: Home - Attestation Statements Document Initiated by Scribe: Yes Documenting Scribe: Traci Alvarez Provider For Whom Scribe is Documenting (Include Credential): Ramsey Arora MD Scribe Attestation: Traci Moore, scribed for Ramsey Arora MD on 11/30/18 at 0046. Scribe Documentation Reviewed: Yes Provider Attestation: The documentation as recorded by the Traci barrera accurately reflects the service I personally performed and the decisions made by Ramsey oreilly MD Status of Scribe Document: Viewed
[2018-11-29 23:32] LABS: ABS Basophils 0 10^3/ul (0-0.2); ABS Eosinophils 0.5 10^3/ul (0-0.6); ABS Lymphocytes 1.8 10^3/ul (1.0-4.8); ABS Monocytes 0.7 10^3/ul (0-0.8); ABS Neutrophils 4.7 10^3/ul (1.5-7.7); ABS Nucleated RBC 0 10^3/ul; Eosinophil % 6.2 %; Hematocrit 28 % (35-47); Hemoglobin 9.2 g/dl (12.0-16.0); Lymphocyte % 23.1 %; Mean Corpuscular HGB Conc 33 g/dl (31-36); Mean Corpuscular Hemoglobin 28 pg (27-31); Mean Corpuscular Volume 84 fL (80-97); Mean Platelet Volume 9.1 fL (7.4-10.4); Nucleated Red Blood Cells % 0; Platelet Count 189 10^3/ul (150-450); Red Blood Count 3.34 10^6/ul (4.00-5.40); Red Cell Distribution Width 15 % (10.5-15); White Blood Count 7.7 10^3/ul (3.5-10.8)
[2018-11-29 23:48] LABS: Albumin 3.2 g/dL (3.2-5.2); Albumin/Globulin Ratio 1.2 (1-3); BUN/Creatinine Ratio 9.5 (8-20); Calcium 8.2 mg/dL (8.6-10.3); EGFR Non-African American 182.4 (>60); Globulin 2.7 g/dL (2-4); Potassium 3.4 mmol/L (3.5-5.0); Total Bilirubin 0.3 mg/dL (0.2-1.0); Total Protein 5.9 g/dL (6.4-8.9)
[2018-11-30 00:50] LABS: Urine Appearance Clear; Urine Bacteria Absent (Absent); Urine Bilirubin Negative (Negative); Urine Blood 1+ (Negative); Urine Color Yellow; Urine Glucose Negative (Negative); Urine Ketones Negative (Negative); Urine Nitrite Negative (Negative); Urine Protein Negative (Negative); Urine Red Blood Cell Absent (Absent); Urine Specific Gravity 1.006 (1.010-1.030); Urine Urobilinogen Negative (Negative); Urine White Blood Cell Absent (Absent)
[2018-11-30 01:06] VITALS: BP 106/53
== END 2018-11-30 01:06 | disposition home or self-care (01) ==
LOC: ED 22:55
DX: O26.893 Other specified pregnancy related conditions, third trimester (principal); R10.30 Lower abdominal pain, unspecified; M54.5 Low back pain; R11.2 Nausea with vomiting, unspecified; R42 Dizziness and giddiness; Z3A.00 Weeks of gestation of pregnancy not specified; Z88.2 Allergy status to sulfonamides; Z87.891 Personal history of nicotine dependence
CPT/HCPCS: 36415; 80053; 81003; 81015; 85025; 99283

== ENCOUNTER 2019-01-31 20:08 | Inpatient (IN) | payer OTHER, MEDICAID ==
[2019-01-31] MEDS ORDERED: Buffered Lidocaine 1% SYRIN* 1 ML/SYRINGE INTRADERM ONE (21:07)
[2019-01-31] MEDS ORDERED: Lactated Ringers 1000 ML Bag* 1,000 ML IV ONE ×2 (21:07→22:30)
[2019-01-31 21:12] LABS: Hematocrit 31 % (35-47); Hemoglobin 9.9 g/dl (12.0-16.0); Mean Corpuscular HGB Conc 32 g/dl (31-36); Mean Corpuscular Hemoglobin 24 pg (27-31); Mean Corpuscular Volume 75 fL (80-97); Mean Platelet Volume 9.2 fL (7.4-10.4); Platelet Count 192 10^3/ul (150-450); Red Blood Count 4.17 10^6/ul (4.00-5.40); Red Cell Distribution Width 17 % (10.5-15); White Blood Count 11.9 10^3/ul (3.5-10.8)
--- NOTE | 2019-01-31 21:15 | HP ---
General Information - Reason for Visit at 38 4/7 weeks in labor. - General Information Maternal Age: 28 Grav: 5 Para: 2 SAB: 2 IEA: 0 Estimated Due Date: 02/10/19 Determined By: LMP Gestational Age in Weeks/Days: 38 4/7 Maternal Blood Type and Rh: O Positive - Results this Serology/RPR Result: Non-Reactive Rubella Result: Non-Immune HBsAg Result: Negative HIV Result: Negative GBS Culture Result: Negative Past Medical History Delivery History: Hx C/Section, See Records Pertinent Past Medical History: See Records Pertinent Past Surgical History: See Records - Prior Section for Breech Pertinent Family History: See Records Review of Systems Constitutional: Uncomfortable CV Complaint: No Respiratory: Shortness of Breath: No Gastrointestinal: No Nausea/Vomiting, Normal Bowel Movement Genitourinary: No Dysuria, No Bleeding, No Leaking Fluid Musculoskeletal: No Complaint, No Epigastric Pain Neurological: No Headache, No Visual Changes Movement: Normal Exam Allergies/Adverse Reactions: Allergies Sulfa (Sulfonamide Antibiotics) Allergy (Verified 12/31/18 20:14) Hives Temp 98.0 BP 126/78 RR 20 P 102 POx 100% RA - Measurements Height: 4 ft 11 in Weight: 121 lb Body Mass Index (BMI): 24.4 Pre- Weight: 109 lb - Exam Breast: Breast Exam Deferred CVA: No CVA Tenderness Extremities: No Edema Heart: Normal Rhythm/Heart Sounds HEENT: No Significant Findings Lungs: Clear Bilaterally Rectal: Rectal Exam Deferred Reflexes: DTR 2+ Thyroid: No Thyromegaly - Abdominal Exam Abdomen Exam: Non-Tender, Fundal Height Consistent with Dates - Ultrasound/Biophysical Profile Ultrasound Status: Not Done Biophysical Profile: Normal Reactive NST Targeted Exam Findings See L&D Outpatient Visit Provider Note for Findings: N/A Cervical Exam: 6cm Effacement: 80% Station: -1 Presenting Part: Vertex Membrane Status: Intact Bleeding/Discharge: None EFM Findings - External Monitor Findings Baseline Heart Rate: 130 External Monitor Findings: Accelerations Present Contractions: Regular, 45-90 Seconds Assessment/Plan - Assessment at 38+ weeks in labor, prior section. Patient to attempt trial of labor after . - Obstetrical Risk Factors Obstetrical Risk Factors: Previous C/Section in Labor - Plan Plan: IV Hydration, Admit - Anticipate Vaginal Delivery - Date/Time of Admission Date of Admission: 01/31/19 Time of Admission: 21:00
[2019-01-31 21:39] LABS: ABS Basophils 0 10^3/ul (0-0.2); ABS Eosinophils 0.3 10^3/ul (0-0.6); ABS Lymphocytes 1.7 10^3/ul (1.0-4.8); ABS Monocytes 0.7 10^3/ul (0-0.8); ABS Neutrophils 9.2 10^3/ul (1.5-7.7); ABS Nucleated RBC 0 10^3/ul; Eosinophil % 2.8 %; Lymphocyte % 14.1 %; Nucleated Red Blood Cells % 0
[2019-01-31] MEDS ORDERED: OBEPIDURAL* 250 ML EPIDURAL ONE (21:40)
[2019-01-31 21:41] LABS: Microcytosis 2+; Polychromasia 1+
[2019-01-31] MEDS ORDERED: Lidocaine 2% EPI 1:200000 MPF*10-20 ML VIAL ONE (21:42)
[2019-01-31] MEDS ORDERED: Lactated Ringers 1000 ML Bag* 1,000 ML IV SCH ×3 (22:00→23:00)
[2019-01-31] MEDS ORDERED: Sodium Citrate/Citric Acid* 15 ML UDC PO PRN (22:30)
[2019-01-31] MEDS ORDERED: Phenylephrine 40 MCG/ML SYRINGE IV PUSH PRN ×2 (22:30)
[2019-01-31] MEDS ORDERED: Famotidine TAB* 20 MG PO PRN (22:30)
[2019-01-31] MEDS ORDERED: Lactated Ringers 1000 ML Bag* 500 ML IV PRN ×2 (22:30)
[2019-01-31] MEDS ORDERED: OBEPIDURAL* 250 ML EPIDURAL SCH (23:00)
[2019-02-01] MEDS ORDERED: Oxytocin in LR* 20 UNITS/1,000 ML BAG IVPB ONE (06:51)
[2019-02-01] MEDS ORDERED: Dibucaine 1% 28.35 GM TUBE PR PRN (07:10)
[2019-02-01] MEDS ORDERED: Acetaminophen TAB* 325 MG PO PRN (07:10)
[2019-02-01] MEDS ORDERED: Witch Hazel PAD* JAR TOPICAL PRN (07:10)
[2019-02-01] MEDS ORDERED: Glycerin ADULT SUPP PR PRN (07:10)
[2019-02-01] MEDS ORDERED: Tetan/Diph/Pertus SYR(Tdap)* 0.5 ML SYR(BOOSTRIX) use SYR IM ONE (07:10)
--- NOTE | 2019-02-01 07:40 | PROCNOTE ---
[facility] OB: Delivery Note - Delivery A Date of : 02/01/19 Time of : 06:50 Sex: Male Weight at : 6 lb 12 oz Score 1 Minute: 9 Score 5 Minutes: 9 Gestational Age in Weeks and Days at Delivery: 38 Weeks and 5 Days Delivery Method: Spontaneous Vaginal Labor: Spontaneous Did Patient attempt ?: Yes, Successful Amniotic Fluid: Clear Estimated Blood Loss: 300 Anesthesia/Analgesia: CEI for Labor Delivered By: Sidney Gagnon - Nursery Level of Nursery: Regular/Bedside - Perineum Perineal Injury: Perineal Laceration, 3rd Degree Extension Perineal Repair: By Delivering Practioner - Events Delivery Events of Note: Pitocin Only After Delivery
[2019-02-01] MEDS ORDERED: Lactated Ringers 1000 ML Bag* 1,000 ML IV SCH (08:00)
[2019-02-01] MEDS ORDERED: Lidocaine 1% INJ* 10 MG/ML 30 ML SDV ONE (09:17)
[2019-02-01] MEDS: Docusate CAP* 100 MG PO SCH ×3 (09:49→21:10)
[2019-02-01] MEDS: Simethicone TAB* 80 MG TAB.CHEW PO SCH (12:59)
[2019-02-01] MEDS: Ibuprofen TAB* 600 MG PO PRN (21:10)
[2019-02-02] MEDS: Ibuprofen TAB* 600 MG PO PRN ×3 (05:20→19:50)
[2019-02-02 06:46] LABS: Hematocrit 26 % (35-47); Hemoglobin 8.3 g/dl (12.0-16.0); Mean Corpuscular HGB Conc 31 g/dl (31-36); Mean Corpuscular Hemoglobin 23 pg (27-31); Mean Corpuscular Volume 74 fL (80-97); Platelet Count 183 10^3/ul (150-450); Red Blood Count 3.53 10^6/ul (4.00-5.40); Red Cell Distribution Width 17 % (10.5-15); White Blood Count 10.9 10^3/ul (3.5-10.8)
[2019-02-02 07:03] LABS: ABS Basophils 0.1 10^3/ul (0-0.2); ABS Eosinophils 0.3 10^3/ul (0-0.6); ABS Lymphocytes 1.6 10^3/ul (1.0-4.8); ABS Monocytes 0.7 10^3/ul (0-0.8); ABS Neutrophils 8.3 10^3/ul (1.5-7.7); ABS Nucleated RBC 0 10^3/ul; Eosinophil % 2.7 %; Lymphocyte % 14.8 %; Nucleated Red Blood Cells % 0.1; Polychromasia 1+; Tear Drop Cells 1+
[2019-02-02] MEDS: Ferrous Gluconate TAB* 324 MG TAB PO SCH ×2 (08:30→19:50)
[2019-02-02] MEDS: Docusate CAP* 100 MG PO SCH ×3 (08:30→19:51)
[2019-02-02] MEDS ORDERED: Measles, Mumps,Rubella VACC* 0.5 ML/VIAL SUBCUT ONE (14:12)
[2019-02-02 19:41] VITALS: BP 110/73
[2019-02-03] MEDS: Ibuprofen TAB* 600 MG PO PRN ×2 (04:31→10:52)
[2019-02-03] MEDS: Ferrous Gluconate TAB* 324 MG TAB PO SCH (10:53)
[2019-02-03] MEDS: Docusate CAP* 100 MG PO SCH (10:53)
== END 2019-02-03 12:10 | disposition home or self-care (01) | DRG 542 ==
LOC: MCHOBOUT 20:08 → MCHOB 20:30
PROVIDERS: ADMIT Obstetrics & Gynecology; ATTEND Obstetrics & Gynecology
PROC: 10E0XZZ Delivery of Products of Conception, External Approach (ICD-10-PCS; principal; 2019-02-01)
PROC: 10907ZC Drainage of Amniotic Fluid, Therapeutic from Products of Conception, Via Natural or Artificial Opening (ICD-10-PCS; 2019-02-01)
PROC: 0DQR0ZZ Repair Anal Sphincter, Open Approach (ICD-10-PCS; 2019-02-01)
DX: O60.23X1 Term delivery with preterm labor, third trimester, fetus 1 (principal); Z37.0 Single live birth; O70.20 Third degree perineal laceration during delivery, unspecified; O99.284 Endocrine, nutritional and metabolic diseases complicating childbirth; E07.9 Disorder of thyroid, unspecified; O34.211 Maternal care for low transverse scar from previous cesarean delivery; O90.81 Anemia of the puerperium; D64.9 Anemia, unspecified; Z3A.38 38 weeks gestation of pregnancy
CPT/HCPCS: 36415; 85025; 86850; 86900; 86901; A9270-GY

== ENCOUNTER 2019-04-24 16:06 | Emergency (ER) | payer MEDICAID, OTHER ==
[2019-04-24 16:17] VITALS: BP 103/66
--- NOTE | 2019-04-24 16:35 | UC ---
Lower Extremity/Ankle HPI - HPI Summary HPI Summary: pt was standing and took a step and felt pain inside of L knee 3 eves ago. did not fall and was able to keep standing. over past 2 days the pain has persisted , no swelling or redness, taking ibuprofen with little relief - History of Current Complaint Chief Complaint: UCLowerExtremity Stated Complaint: L KNEE PAIN Time Seen by Provider: 04/24/19 16:29 Hx Obtained From: Patient Hx Last Menstrual Period: [id number] ?: No Onset/Duration: Sudden Onset Severity Initially: Moderate Severity Currently: Moderate Pain Intensity: 7 Aggravating Factor(s): Ambulation Alleviating Factor(s): Rest Able to Bear Weight: Yes - Allergies/Home Medications Allergies/Adverse Reactions: Allergies Allergy/AdvReac Type Severity Reaction Status Date / Time Sulfa (Sulfonamide Allergy Hives Verified 04/24/19 16:17 Antibiotics) Home Medications: Home Medications Ibuprofen TAB* [Motrin TAB* 400 MG] 400 mg PO Q6H PRN 04/24/19 [History Confirmed 04/24/19] PMH/Surg Hx/FS Hx/Imm Hx Previously Healthy: Yes Other History Of: Negative For: Anticoagulant Therapy - Surgical History Surgical History: Yes Surgery Procedure, Year, and Place: C section - Family History Known Family History: Positive: Hypertension, Diabetes, Other - CA, thyroid issues - Social History Occupation: Employed Part-time Lives: With Family Alcohol Use: None Substance Use Type: None Smoking Status (MU): Former Smoker Amount Used/How Often: 1pack q 3 days. Have You Smoked in the Last Year: No Household Exposure Type: Cigarettes - Immunization History Most Recent Influenza Vaccination: 02/01/19 Most Recent Tetanus Shot: unsure Most Recent Pneumonia Vaccination: never Review of Systems All Other Systems Reviewed And Are Negative: Yes Constitutional: Positive: Negative Respiratory: Positive: Negative Cardiovascular: Positive: Negative Musculoskeletal: Positive: Other: - L knee pain Neurological: Positive: Negative Psychological: Positive: Negative Is Patient Immunocompromised?: No Physical Exam Triage Information Reviewed: Yes Appearance: Well-Appearing, No Pain Distress, Well-Nourished Vital Signs: Initial Vital Signs Temp 98.1 F 04/24/19 16:12 Pulse 94 04/24/19 16:12 Resp 16 04/24/19 16:12 BP 103/66 04/24/19 16:12 Pulse Ox 99 04/24/19 16:12 Vital Signs Reviewed: Yes Respiratory Exam: Normal Respiratory: Positive: Lungs clear Cardiovascular Exam: Normal Cardiovascular: Positive: RRR Musculoskeletal: Positive: Strength Intact, ROM Intact, No Edema, Other: - tenderness to palpation medial knee, no skin changes Neurological Exam: Normal Psychological Exam: Normal Skin Exam: Normal Lower Extremity Course/Dx - Differential Dx/Diagnosis Differential Diagnosis/HQI/PQRI: Contusion, Fracture (Closed), Sprain, Strain, Tendonitis Provider Diagnosis: Strain of left knee Discharge - Sign-Out/Discharge Documenting (check all that apply): Patient Departure All imaging exams completed and their final reports reviewed: No Studies - Discharge Plan Condition: Good Disposition: HOME Patient Education Materials: Knee Pain (ED) Referrals: Jose Manuel Lynn MD [Primary Care Provider] - Dawit Lovell MD [Medical Doctor] - 1 Week (If no better) Additional Instructions: use knee immobilizer for 3-5 days, rest knee use ibuprofen 600mg every 6 hours as needed for pain. Take with food follow-up with orthopedics if no better 1 week - Billing Disposition and Condition Condition: GOOD Disposition: Home - Attestation Statements Provider Attestation: I was available for consult. This patient was seen by the CINDY. The patient was not presented to , seen by or examined by -Angela Campos MD
== END 2019-04-24 16:55 | disposition home or self-care (01) ==
LOC: UCEAST 16:06
DX: S86.912A Strain of unspecified muscle(s) and tendon(s) at lower leg level, left leg, initial encounter (principal); X58.XXXA Exposure to other specified factors, initial encounter; Y92.9 Unspecified place or not applicable; Z87.891 Personal history of nicotine dependence; Z88.2 Allergy status to sulfonamides
CPT/HCPCS: 99211; G0463

== ENCOUNTER 2019-08-15 12:01 | Emergency (ER) | payer OTHER ==
[2019-08-15 12:13] VITALS: BP 105/66
--- NOTE | 2019-08-15 12:13 | UC ---
Cardiac HPI - HPI Summary HPI Summary: 29 yo female presents with chest pain. She tells me that last night she had epigastric pain and nausea that changed to sternal chest pain later in the evening. Pain has been constant since that time and is worse with taking deep breaths. She also feels weak and dizzy. She denies SOB and has a hx of asthma, but states this does not feel like her usual asthma and has used her inhaler with no relief. She is no longer having any nausea and denies vomiting. She is still having mild epigastric discomfort. Denies numbness, tingling, cough, back pain, dysuria. Has an IUD. - History of Current Complaint Chief Complaint: UCChestPain Stated Complaint: CHEST/ABD PAIN Time Seen by Provider: 08/15/19 12:13 Hx Obtained From: Patient Hx Last Menstrual Period: 07/30/19 Onset/Duration: Sudden Onset Initial Severity: Moderate Current Severity: Moderate Pain Intensity: 7 Aggravating Factor(s): Deep Breaths - Allergy/Home Medications Allergies/Adverse Reactions: Allergies Allergy/AdvReac Type Severity Reaction Status Date / Time Sulfa (Sulfonamide Allergy Hives Verified 08/15/19 12:05 Antibiotics) Home Medications: Home Medications NK [No Home Medications Reported] 08/15/19 [History Confirmed 08/15/19] PMH/Surg Hx/FS Hx/Imm Hx - Additional Past Medical History Additional PMH: None Other History Of: Negative For: Anticoagulant Therapy - Surgical History Surgical History: Yes Surgery Procedure, Year, and Place: C section 2013 - Family History Known Family History: Positive: Hypertension, Diabetes, Other - CA, thyroid issues - Social History Lives: With Family Alcohol Use: None Substance Use Type: None Smoking Status (MU): Smoker, Current Status Unknown Amount Used/How Often: 1pack a week Have You Smoked in the Last Year: No Household Exposure Type: Cigarettes - Immunization History Most Recent Influenza Vaccination: 02/01/19 Most Recent Tetanus Shot: unsure Most Recent Pneumonia Vaccination: never Review of Systems All Other Systems Reviewed And Are Negative: No Constitutional: Positive: Negative Skin: Positive: Negative Eyes: Positive: Negative ENT: Positive: Negative Respiratory: Positive: Negative Cardiovascular: Positive: Chest Pain Gastrointestinal: Positive: Abdominal Pain Genitourinary: Positive: Negative Neurovascular: Positive: Negative Neurological: Positive: Negative Psychological: Positive: Negative Physical Exam - Summary Physical Exam Summary: GENERAL: NAD. WDWN. No pain distress. SKIN: No rashes, sores, or open wounds. HEENT: Head: AT/NC Eyes: PERRLA. EOM intact. Conjunctiva clear without inflammation or discharge. Ears: Hearing grossly normal. TMs intact, no bulging, erythema, or edema. Nose: Nasal mucosa pink and moist. NTTP maxillary and frontal sinus. Throat: Posterior oropharynx without exudates, erythema, or tonsillar enlargement. Uvula midline. NECK: Supple. Nontender. No lymphadenopathy. CHEST: CTAB. No r/r/w. No accessory muscle use. Breathing comfortably and in no distress. CV: RRR. Without m/r/g. Pulses intact. Brisk cap refill. ABDOMEN: Soft. Mild epigastric TTP. No distention or guarding. No CVA tenderness. Bowel sounds present NEURO: Alert. PSYCH: Age appropriate behavior. Triage Information Reviewed: Yes Vital Signs: Initial Vital Signs Temp 98.2 F 08/15/19 12:06 Pulse 65 08/15/19 12:06 Resp 18 08/15/19 12:06 BP 105/66 08/15/19 12:06 Pulse Ox 100 08/15/19 12:06 Vital Signs Reviewed: Yes Diagnostics - EKG Ectopy: None ST Segment: Normal EKG Comparison: Other - NSR 74bpm. Short [place]. No STEMI as read by Dr. Barclay - Assessment/Plan Course Of Treatment: EKG as above. Given her continued constant chest pain that is worse with deep breaths - I recommended that she be further evaluated in the ED. She was agreeable to this and boyfriend with her today will drive. - Clinical Impression Provider Diagnosis: Chest pain Discharge ED - Sign-Out/Discharge Documenting (check all that apply): Patient Departure All imaging exams completed and their final reports reviewed: No Studies - Discharge Plan Condition: Stable Disposition: HOME-RECOMMEND TO ED Referrals: Jose Manuel Lynn MD [Primary Care Provider] - Additional Instructions: Please go to the ER for further evaluation of your chest pain - Billing Disposition and Condition Condition: STABLE Disposition: Home-Recommend to ED
== END 2019-08-15 12:28 | disposition home health service (06) ==
LOC: UCEAST 12:01
DX: R07.9 Chest pain, unspecified (principal); F17.210 Nicotine dependence, cigarettes, uncomplicated; Z88.2 Allergy status to sulfonamides
CPT/HCPCS: 93005; 99211; G0463

== ENCOUNTER 2019-08-16 13:16 | Emergency (ER) | payer OTHER ==
[2019-08-16] MEDS ORDERED: Ketorolac INJ* 30 MG/ML 1 ML VIAL IV PUSH ONE (13:34)
--- NOTE | 2019-08-16 13:38 | ED ---
HPI Chest Pain - HPI Summary HPI Summary: This patient is a 29 year old F presenting to ED with a chief complaint of chest pain since 07/14/19. The pain initially started on the right anterior aspect of the chest but has since spread to the left anterior part. It is a constant pain described as sharp/stabbing. Patient has never had this pain before. She reports dizziness, shortness of breath, and lightheadedness. Patient denies nausea, vomiting, diarrhea, and constipation. The patient rates the pain 8/10 in severity. Symptoms aggravated by nothing. Symptoms alleviated by nothing. Patient has a Paragard IUD and her last menstrual cycle was at the beginning of this month. PMHx of asthma. - History of Current Complaint Chief Complaint: EDChestPainROMI Time Seen by Provider: 08/16/19 13:30 Hx Obtained From: Patient Hx Last Menstrual Period: 07/30/19 Onset/Duration: Started Days Ago - 08/14/19, Still Present Timing: Constant, Lasting Days - Since 08/14/19 Initial Severity: Severe Current Severity: Severe Pain Intensity: 8 Pain Scale Used: 0-10 Numeric Chest Pain Location: Left Anterior, Right Anterior Character: Sharp/Stabbing Aggravating Factor(s): Nothing Alleviating Factor(s): Nothing Associated Signs and Symptoms: Positive: Negative - Diarrhea, constipation, Chest Pain, Dizziness, Shortness of Breath, Lightheadedness. Negative: Nausea, Vomiting - Allergy/Home Medications Allergies/Adverse Reactions: Allergies Allergy/AdvReac Type Severity Reaction Status Date / Time Sulfa (Sulfonamide Allergy Hives Verified 08/15/19 12:05 Antibiotics) PMH/Surg Hx/FS Hx/Imm Hx Endocrine/Hematology History: Reports: Hx Thyroid Disease Denies: Hx Anticoagulant Therapy, Hx Diabetes Cardiovascular History: Denies: Hx Hypertension, Hx Pacemaker/ICD Respiratory History: Reports: Hx Asthma Denies: Hx Chronic Obstructive Pulmonary Disease (COPD) GI History: Denies: Hx Ulcer History: Denies: Hx Dialysis Sensory History: Denies: Hx Hearing Aid Neurological History: Denies: Hx CVA Psychiatric History: Denies: Hx Panic Disorder - Surgical History Surgery Procedure, Year, and Place: C section 2013 Infectious Disease History: No Infectious Disease History: Denies: Hx Clostridium Difficile, Hx Hepatitis, Hx Human Immunodeficiency Virus (HIV), Hx of Known/Suspected MRSA, Hx Shingles, Hx Tuberculosis, Hx Known/ Suspected VRE, Hx Known/Suspected VRSA, History Other Infectious Disease, Traveled Outside the [place] in Last 30 Days - Family History Known Family History: Positive: Hypertension, Diabetes, Other - CA, thyroid issues - Social History Alcohol Use: None Hx Substance Use: No Substance Use Type: Reports: None Hx Tobacco Use: Yes Smoking Status (MU): Current Some Day Smoker Amount Used/How Often: Less than 1 pack per week Have You Smoked in the Last Year: No Review of Systems Positive: Chest Pain Positive: Shortness Of Breath Gastrointestinal: Negative - Constipation Negative: Vomiting, Diarrhea, Nausea Neurological: Other - Dizziness, lightheadedness All Other Systems Reviewed And Are Negative: Yes Physical Exam - Summary Physical Exam Summary: VITAL SIGNS: Reviewed. GENERAL: Patient is a well-developed and nourished F who is lying comfortable in the stretcher. Patient is not in any acute respiratory distress. HEAD AND FACE: No signs of trauma. No ecchymosis, hematomas or skull depressions. No sinus tenderness. EYES: PERRLA, EOMI x 2, No injected conjunctiva, no nystagmus. EARS: Hearing grossly intact. Ear canals and tympanic membranes are within normal limits. MOUTH: Oropharynx within normal limits. NECK: Supple, trachea is midline, no adenopathy, no JVD, no carotid bruit, no c- spine tenderness, neck with full ROM. CHEST: Reproducible chest pain. LUNGS: Clear to auscultation bilaterally. No wheezing or crackles. CVS: Regular rate and rhythm, S1 and S2 present, no murmurs or gallops appreciated. ABDOMEN: Soft, non-tender. No signs of distention. No rebound, no guarding, and no masses palpated. Bowel sounds are normal. EXTREMITIES: FROM in all major joints, no edema, no cyanosis or clubbing. NEURO: Alert and oriented x 3. No acute neurological deficits. Speech is normal and follows commands. SKIN: Dry and warm. Triage Information Reviewed: Yes Vital Signs On Initial Exam: Initial Vitals Temp Pulse Resp BP Pulse Ox 98.0 F 74 16 113/68 100 08/16/19 13:20 08/16/19 13:20 08/16/19 13:20 08/16/19 13:20 08/16/19 13:20 Vital Signs Reviewed: Yes Diagnostics - Vital Signs Vital Signs Temp Pulse Resp BP Pulse Ox 08/16/19 13:20 98.0 F 74 16 113/68 100 - Laboratory Result Diagrams: 08/16/19 13:37 08/16/19 13:37 Lab Statement: Any lab studies that have been ordered have been reviewed, and results considered in the medical decision making process. - Radiology CXR Radiology Interpretation Completed By: Radiologist Summary of Radiographic Findings: NO EVIDENCE FOR ACUTE FINDING. Dr. Wood has reviewed this radiology report. - EKG 1317 Cardiac Rate: NL - 69 BPM EKG Rhythm: Sinus Rhythm ST Segment: Normal Ectopy: None Summary of EKG Findings: NSR at 69 BPM, no ST elevations. Re-Evaluation - Re-Evaluation First Eval Re-Evaluation Time: 16:20 Change: Improved Comment: Patient's symptoms have improved. We discussed all results and plan for discharge. Chest Pain Course/Dx - Course Assessment/Plan: Blood test results without any significant abnormality except for hemoglobin 10.8 hematocrit 34, INR 110, d-dimer 257 (less than 500 which would be concerning for a PE.) The patient also is not hypoxic or tachycardic and therefore no suspicion for PE. troponin 0.01. Chest x-ray impression: No evidence for acute pathology. Heart score is equal to 1, therefore no suspicion for acute coronary syndrome. In the ED course the patient was given Toradol for pain and his symptoms have significantly improved. Patient reports that the pain is only 1 out of 10. Therefore the patient will be discharged home with follow-up with PCP. - Diagnoses Provider Diagnoses: Atypical chest pain Discharge ED - Sign-Out/Discharge Documenting (check all that apply): Patient Departure - Patient will be discharged home. Patient Received Moderate/Deep Sedation with Procedure: No - Discharge Plan Condition: Stable Disposition: HOME Patient Education Materials: Chest Pain (DC) Referrals: Jose Manuel Lynn MD [Primary Care Provider] - 3 Days Additional Instructions: Follow up with your primary care provider in 2-3 days. Return to the emergency department for any new or worsening symptoms. - Billing Disposition and Condition Condition: STABLE Disposition: Home - Attestation Statements Document Initiated by Scribe: Yes Documenting Scribe: Claus Prieto Provider For Whom Scribe is Documenting (Include Credential): Israel Mason MD Scribe Attestation: I, Claus Prieto, scribed for Israel Mason MD on 08/16/19 at 1835. Scribe Documentation Reviewed: Yes Provider Attestation: The documentation as recorded by the scribeClaus accurately reflects the service I personally performed and the decisions made by me, Israel Mason MD Status of Scribe Document: Viewed
[2019-08-16 13:51] LABS: INR 1.1 (0.82-1.09)
[2019-08-16 13:55] LABS: ABS Basophils 0.1 10^3/ul (0-0.2); ABS Eosinophils 0.2 10^3/ul (0-0.6); ABS Lymphocytes 1.5 10^3/ul (1.0-4.8); ABS Monocytes 0.4 10^3/ul (0-0.8); ABS Neutrophils 3.6 10^3/ul (1.5-7.7); Eosinophil % 3.5 %; Hematocrit 34 % (35-47); Hemoglobin 10.8 g/dL (12.0-16.0); Lymphocyte % 26.7 %; Mean Corpuscular HGB Conc 32 g/dL (31-36); Mean Corpuscular Hemoglobin 27 pg (27-31); Mean Corpuscular Volume 84 fL (80-97); Platelet Count 249 10^3/uL (150-450); Red Cell Distribution Width 17 % (10-15); White Blood Count 5.8 10^3/uL (3.5-10.8)
[2019-08-16 14:06] LABS: Albumin 4.1 g/dL (3.2-5.2); Albumin/Globulin Ratio 1.5 (1-3); BUN/Creatinine Ratio 8.2 (8-20); Calcium 9.2 mg/dL (8.6-10.3); EGFR African American 142.4 (>60); EGFR Non-African American 117.7 (>60); Globulin 2.8 g/dL (2-4); Potassium 3.8 mmol/L (3.5-5.0); Total Bilirubin 0.4 mg/dL (0.2-1.0); Total Protein 6.9 g/dL (6.4-8.9)
[2019-08-16 14:08] LABS: Troponin I 0.01 ng/mL (<0.04)
[2019-08-16 14:11] LABS: HCG Pregnancy 0.63 mIU/mL
[2019-08-16 16:33] VITALS: BP 93/57
== END 2019-08-16 16:34 | disposition home or self-care (01) ==
LOC: ED 13:16
DX: R07.89 Other chest pain (principal); E07.9 Disorder of thyroid, unspecified; F17.200 Nicotine dependence, unspecified, uncomplicated; Z88.2 Allergy status to sulfonamides
CPT/HCPCS: 36415; 71046; 80053; 83690; 84484; 84702; 85025; 85379; 85610; 93005; 96374; 99283; J1885

== ENCOUNTER 2020-02-20 11:13 | Emergency (ER) | payer OTHER ==
[2020-02-20 11:43] VITALS: BP 121/63
[2020-02-20 11:52] LABS: Influenza A Molecular Negative (Negative); Influenza B Molecular Negative (Negative)
--- NOTE | 2020-02-20 11:54 | UC ---
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 She has a history of asthma and for the past 3 days has had nasal congestion postnasal drip and wheezing. She has felt feverish and has had chills. She does not have an metered-dose inhaler. She has felt particularly tight at night. She has had no nausea vomiting or diarrhea. - History of Current Complaint Chief Complaint: UCGeneralIllness Stated Complaint: SHORT OF BREATH Time Seen by Provider: 02/20/20 11:20 Hx Obtained From: Patient Hx Last Menstrual Period: IUD Onset/Duration: Gradual Onset Timing: Constant Severity Initially: Mild Severity Currently: Moderate Pain Intensity: 3 Pain Scale Used: 0-10 Numeric Character: Cough: Nonproductive Aggravating Factors: Nothing Alleviating Factors: Nothing Associated Signs And Symptoms: Positive: Fever, Chills, Wheezing, Nasal Congestion, Sinus Discomfort - Allergies/Home Medications Allergies/Adverse Reactions: Allergies Allergy/AdvReac Type Severity Reaction Status Date / Time Sulfa (Sulfonamide Allergy Hives Verified 02/20/20 11:43 Antibiotics) Home Medications: Home Medications Albuterol HFA INHALER* [Ventolin HFA Inhaler*] 2 puff INH QID #1 mdi 02/20/20 [ Rx] PMH/Surg Hx/FS Hx/Imm Hx Previously Healthy: Yes Respiratory History: Asthma, Bronchitis Other History Of: Negative For: Anticoagulant Therapy - Surgical History Surgical History: Yes Surgery Procedure, Year, and Place: C section 2013 - Family History Known Family History: Positive: Hypertension, Diabetes, Other - CA, thyroid issues - Social History Alcohol Use: None Substance Use Type: None Smoking Status (MU): Current Some Day Smoker Amount Used/How Often: Less than 1 pack per week Have You Smoked in the Last Year: No Household Exposure Type: Cigarettes - Immunization History Most Recent Influenza Vaccination: 02/01/19 Most Recent Tetanus Shot: unsure Most Recent Pneumonia Vaccination: never Review of Systems All Other Systems Reviewed And Are Negative: Yes Constitutional: Positive: Fever - morales, Chills, Fatigue Skin: Positive: Negative Eyes: Positive: Negative ENT: Positive: Nasal Discharge, Sinus Congestion, Sinus Pain/Tenderness. Negative: Sore Throat Respiratory: Positive: Shortness Of Breath - at times, Cough Cardiovascular: Positive: Negative Gastrointestinal: Positive: Negative Genitourinary: Positive: Negative Motor: Positive: Negative Neurovascular: Positive: Negative Musculoskeletal: Positive: Myalgia Neurological/Mental Status: Positive: Headache Physical Exam Triage Information Reviewed: Yes Appearance: Well-Appearing, No Pain Distress, Well-Nourished Vital Signs: Initial Vital Signs Temp 98.1 F 02/20/20 11:40 Pulse 66 02/20/20 11:40 Resp 16 02/20/20 11:40 BP 121/63 02/20/20 11:40 Pulse Ox 98 02/20/20 11:40 Vital Signs Reviewed: Yes Eyes: Positive: Conjunctiva Clear ENT: Positive: Hearing grossly normal, Nasal congestion, Nasal drainage, Sinus tenderness, Uvula midline. Negative: Tonsillar swelling, Tonsillar exudate, Trismus, Muffled voice, Hoarse voice Dental Exam: Normal Neck: Positive: Supple, Nontender, No Lymphadenopathy Respiratory: Positive: No respiratory distress, No accessory muscle use, Crackles - right base Cardiovascular: Positive: RRR Abdomen Description: Positive: Nontender, No Organomegaly. Negative: CVA Tenderness (R), CVA Tenderness (L) Musculoskeletal: Positive: ROM Intact, No Edema Neurological: Positive: Alert Psychological Exam: Normal Skin Exam: Normal Diagnostics - Laboratory Lab Results: influenza (-) - Radiology No standard instances Radiology Interpretation Completed By: ED Physician Summary of Radiographic Findings: No active cardiopulmonary disease is noted Respiratory Course/Dx - Course Course Of Treatment: influenza (-) - Differential Dx/Diagnosis Provider Diagnosis: Viral syndrome Discharge ED - Sign-Out/Discharge Documenting (check all that apply): Patient Departure All imaging exams completed and their final reports reviewed: Yes - Discharge Plan Condition: Stable Disposition: HOME Prescriptions: Albuterol HFA INHALER* [Ventolin HFA Inhaler*] 2 puff INH QID #1 mdi Patient Education Materials: Viral Syndrome (ED) Forms: COVID-19 Tested & Isolation Referrals: Jose Manuel Lynn MD [Primary Care Provider] - If Needed Additional Instructions: covid test pending recheck for worsening symptoms or if not better in 4-5 days - Billing Disposition and Condition Condition: STABLE Disposition: Home
== END 2020-02-20 12:58 | disposition home or self-care (01) ==
LOC: UCEAST 11:13
DX: B34.9 Viral infection, unspecified (principal); R09.89 Other specified symptoms and signs involving the circulatory and respiratory systems; J45.909 Unspecified asthma, uncomplicated; Z88.2 Allergy status to sulfonamides; Z72.0 Tobacco use; Z20.828 Contact with and (suspected) exposure to other viral communicable diseases
CPT/HCPCS: 71046; 99212; G0463; U0002